=== PATIENT | female | born 1950 | race Caucasian/White ===

== ENCOUNTER 2021-03-16 05:53 | Day surgery (SDC) | payer MEDICARE, OTHER ==
[~2021-03-16] VITALS: Ht 160 cm; Wt 97.7 kg
[~2021-03-16 05:53] MED LIST: LISI5 PO; MELO7.5 PO; METO25 PO; Norvasc5 MG PO
--- NOTE | 2021-03-16 19:39 | NUR ---
SHIFT SUMMARY PT HAS DONE WELL POST OP. EATING, DRINKING, VOIDING. PAIN WELL MANAGED. WORKED W/ THERAPY & UP IN CHAIR FOR REST OF SHIFT. NO DRAINAGE TO AQUACEL.
--- NOTE | 2021-03-17 04:24 | NUR ---
PT A/OX4. BP SOFT IN LOW 100S. PT ASYMPTOMATIC. OTHER VSS ON RA. PAIN MANAGED WELL W/ SCHEDULED AND PRN PAIN MEDS ALONG W/ ICE PACK. PT UP TO TOILET W/ FWW. AMBULATED IN HALLWAY. TOLERATING FOOD/WATER, IV FLUIDS D/C. SLEEPING B/W CARE. USING CALL LIGHT TO MAKE NEEDS KNOWN.
[2021-03-17 04:32] LABS: BASOPHILS ABSOLUTE AUTO 0.04 K/mm3 (0.00-0.23); BASOPHILS PERCENT AUTO 0 % (0-2); EOSINOPHILS ABSOLUTE AUTO 0.21 K/mm3 (0.00-0.68); EOSINOPHILS PERCENT AUTO 2 % (0-6); Hematocrit 34.4 % (33.0-51.0); Hemoglobin 11.3 g/dL (11.5-16.0); IMMATURE GRAN ABSOLUTE AUTO 0.04 K/mm3 (0.00-0.10); IMMATURE GRAN PERCENT AUTO 0 % (0-1); LYMPHOCYTES ABSOLUTE AUTO 1.85 K/mm3 (0.84-5.20); LYMPHOCYTES PERCENT AUTO 16 % (21-46); MONOCYTES ABSOLUTE AUTO 0.98 K/mm3 (0.16-1.47); MONOCYTES PERCENT AUTO 8 % (4-13); Mean Corpuscular HGB 29.4 pg (26.0-34.0); Mean Corpuscular HGB Conc 32.8 g/dL (31.5-36.5); Mean Corpuscular Volume 89 fL (80-100); Mean Platelet Volume 10.8 fL (9.1-12.4); NEUTROPHILS ABSOLUTE AUTO 8.51 K/mm3 (1.96-9.15); NEUTROPHILS PERCENT AUTO 73 % (41-73); Platelet Count 176 K/mm3 (150-400); RDW Coefficient Variation 13.5 % (11.7-14.2); RDW Standard Deviation 44.1 fL (35.1-46.3); Red Blood Cell Count 3.85 M/mm3 (3.80-5.20); White Blood Cell Count 11.63 K/mm3 (4.00-11.30)
[2021-03-17 05:02] LABS: Anion Gap 7 mmol/L (6-16); Blood Urea Nitrogen 25 mg/dL (8-24); Bun/Creatinine Ratio 31.2 (12.0-20.0); CO2, Blood 27 mmol/L (21-32); Calcium, Blood 8.1 mg/dL (8.5-10.1); Chloride, Blood 102 mmol/L (98-108); Glomerular Filtration Rate >60 (60-); Glucose, Blood 194 mg/dL (70-99); Magnesium, Blood 1.8 mg/dL (1.6-2.4); Potassium, Blood 3.5 mmol/L (3.5-5.5); Sodium, Blood 136 mmol/L (136-145)
[2021-03-17] MEDS ORDERED: ACET500 PO (10:36)
[2021-03-17] MEDS ORDERED: ASPI81CH PO (10:36)
[2021-03-17] MEDS ORDERED: OXYC5 PO (10:37)
--- NOTE | 2021-03-17 12:18 | NUR ---
DISCHARGE PT DISCHARGED HOME FROM UNIT AT APROX 1210. PT GIVEN WRITTEN AND VERBAL DISCHARGE INSTRUCTIONS AND PT VERBALIZED UNDERSTANDING OF THESE INSTRUCTIONS. IV REMOVED, PT TOLERATED WELL. WRITTEN RX FOR PAIN MEDICATION GIVEN TO PT.
== END 2021-03-17 12:11 | disposition home or self-care (01) ==
LOC: ORSCMMR 05:53 → ORD 07:30 → SURS 11:04 → ORSCMMR 03-17 12:11 → SURS 03-17 12:11
PROVIDERS: Orthopaedic Surgery
PROC: 0SR90JA Replacement of Right Hip Joint with Synthetic Substitute, Uncemented, Open Approach (ICD-10-PCS; principal; 2021-03-16 07:30)
DX: M16.11 Unilateral primary osteoarthritis, right hip (principal); I10 Essential (primary) hypertension; E66.01 Morbid (severe) obesity due to excess calories; Z68.38 Body mass index [BMI] 38.0-38.9, adult; Z79.899 Other long term (current) drug therapy
CPT/HCPCS: 36415; 72170; 80048; 82947; 83735; 85025; 97110; 97116; 97162; A9270; C1713; C1776; J0171; J0690; J0735; J1885; J2250; J2370; J2405; J2704; J2795; J3010; J7120

== ENCOUNTER 2021-06-15 08:58 | Emergency (ER) | payer MEDICARE, OTHER ==
[~2021-06-15] VITALS: Ht 167.6 cm; Wt 93.0 kg
[~2021-06-15 08:58] MED LIST changes: +ACET500 PO; +ASPI81CH PO; +OXYC5 PO
[2021-06-15 09:37] LABS: BASOPHILS ABSOLUTE AUTO 0.06 K/mm3 (0.00-0.23); BASOPHILS PERCENT AUTO 1 % (0-2); EOSINOPHILS ABSOLUTE AUTO 0.23 K/mm3 (0.00-0.68); EOSINOPHILS PERCENT AUTO 3 % (0-6); Hematocrit 43.9 % (33.0-51.0); Hemoglobin 14.2 g/dL (11.5-16.0); IMMATURE GRAN ABSOLUTE AUTO 0.01 K/mm3 (0.00-0.10); IMMATURE GRAN PERCENT AUTO 0 % (0-1); LYMPHOCYTES ABSOLUTE AUTO 2.17 K/mm3 (0.84-5.20); LYMPHOCYTES PERCENT AUTO 29 % (21-46); MONOCYTES ABSOLUTE AUTO 0.56 K/mm3 (0.16-1.47); MONOCYTES PERCENT AUTO 8 % (4-13); Mean Corpuscular HGB 28.2 pg (26.0-34.0); Mean Corpuscular HGB Conc 32.3 g/dL (31.5-36.5); Mean Corpuscular Volume 87 fL (80-100); Mean Platelet Volume 10.8 fL (9.1-12.4); NEUTROPHILS ABSOLUTE AUTO 4.46 K/mm3 (1.96-9.15); NEUTROPHILS PERCENT AUTO 60 % (41-73); Platelet Count 224 K/mm3 (150-400); RDW Coefficient Variation 14.1 % (11.7-14.2); RDW Standard Deviation 45.4 fL (35.1-46.3); Red Blood Cell Count 5.03 M/mm3 (3.80-5.20); White Blood Cell Count 7.49 K/mm3 (4.00-11.30)
[2021-06-15] MEDS ORDERED: AMLODIPINE BES2.5 MG PO (09:42)
[2021-06-15 10:11] LABS: Alanine Aminotransfer (ALT/SGP 28 U/L (12-78); Albumin, Blood 3.9 g/dL (3.4-5.0); Alk Phos 101 U/L (50-136); Anion Gap 7 mmol/L (6-16); Aspartate Aminotrans (AST/SGOT 20 U/L (12-37); Bilirubin, Total 0.5 mg/dL (0.1-1.0); Blood Urea Nitrogen 24 mg/dL (8-24); Bun/Creatinine Ratio 33.6 (12.0-20.0); CO2, Blood 24 mmol/L (21-32); Calcium, Blood 9.1 mg/dL (8.5-10.1); Chloride, Blood 108 mmol/L (98-108); Creatinine, Blood 0.71 mg/dL (0.40-1.00); Globulin, Blood 4.1 g/dL (2.2-4.0); Glomerular Filtration Rate >60 (60-); Glucose, Blood 155 mg/dL (70-99); Sodium, Blood 139 mmol/L (136-145); Troponin I <0.015 ng/mL (0.000-0.040)
== END 2021-06-15 11:54 | disposition home or self-care (01) ==
LOC: ER 08:58
PROVIDERS: Emergency Medicine Emergency Medical Services
DX: R07.89 Other chest pain (principal); I10 Essential (primary) hypertension; E11.9 Type 2 diabetes mellitus without complications; Z79.899 Other long term (current) drug therapy; Z79.82 Long term (current) use of aspirin; Z86.73 Personal history of transient ischemic attack (TIA), and cerebral infarction without residual deficits
CPT/HCPCS: 36415; 71045; 80053; 83690; 83880; 84484; 85025; 93005; 93010; 96374; 99285-25; J1885

== ENCOUNTER → 2021-08-02 | Outpatient (CLI) | payer MEDICARE ==
[~2021-08-02] MED LIST changes: +AMLODIPINE BES2.5 MG PO
== END ==
LOC: LAB SHORT 15:16 → LAB 15:16
DX: R30.0 Dysuria (principal)
CPT/HCPCS: 87077; 87086; 87186

== ENCOUNTER 2022-03-05 10:57 | Emergency (ER) | payer MEDICARE ==
[~2022-03-05] VITALS: Ht 160 cm; Wt 83.0 kg
[2022-03-05 13:10] LABS: BASOPHILS ABSOLUTE AUTO 0.03 K/mm3 (0.00-0.23); BASOPHILS PERCENT AUTO 0 % (0-2); EOSINOPHILS ABSOLUTE AUTO 0.05 K/mm3 (0.00-0.68); EOSINOPHILS PERCENT AUTO 1 % (0-6); Hematocrit 44.3 % (33.0-51.0); Hemoglobin 14.5 g/dL (11.5-16.0); IMMATURE GRAN ABSOLUTE AUTO 0.01 K/mm3 (0.00-0.10); IMMATURE GRAN PERCENT AUTO 0 % (0-1); LYMPHOCYTES ABSOLUTE AUTO 1.47 K/mm3 (0.84-5.20); LYMPHOCYTES PERCENT AUTO 16 % (21-46); MONOCYTES ABSOLUTE AUTO 0.74 K/mm3 (0.16-1.47); MONOCYTES PERCENT AUTO 8 % (4-13); Mean Corpuscular HGB 27.4 pg (26.0-34.0); Mean Corpuscular HGB Conc 32.7 g/dL (31.5-36.5); Mean Corpuscular Volume 84 fL (80-100); Mean Platelet Volume 10.4 fL (9.1-12.4); NEUTROPHILS ABSOLUTE AUTO 6.96 K/mm3 (1.96-9.15); NEUTROPHILS PERCENT AUTO 75 % (41-73); Platelet Count 280 K/mm3 (150-400); RDW Coefficient Variation 15.9 % (11.7-14.2); RDW Standard Deviation 48.6 fL (35.1-46.3); Red Blood Cell Count 5.29 M/mm3 (3.80-5.20); White Blood Cell Count 9.26 K/mm3 (4.00-11.30)
[2022-03-05 13:26] LABS: Bun/Creatinine Ratio 49.6 (12.0-20.0); Calcium, Blood 8.8 mg/dL (8.5-10.1); Creatinine, Blood 0.79 mg/dL (0.40-1.00); Magnesium, Blood 2.2 mg/dL (1.6-2.4); Potassium, Blood 3.5 mmol/L (3.5-5.5)
== END 2022-03-05 14:30 | disposition home or self-care (01) ==
LOC: ER 10:57
PROVIDERS: Student in an Organized Health Care Education/Training Program
DX: S40.012A Contusion of left shoulder, initial encounter (principal); S70.02XA Contusion of left hip, initial encounter; S00.31XA Abrasion of nose, initial encounter; S00.81XA Abrasion of other part of head, initial encounter; E86.0 Dehydration; I10 Essential (primary) hypertension; E11.9 Type 2 diabetes mellitus without complications; Z86.73 Personal history of transient ischemic attack (TIA), and cerebral infarction without residual deficits; Z79.899 Other long term (current) drug therapy; Z79.82 Long term (current) use of aspirin; Z91.09 Other allergy status, other than to drugs and biological substances; W10.9XXA Fall (on) (from) unspecified stairs and steps, initial encounter; Y92.9 Unspecified place or not applicable
CPT/HCPCS: 36415; 70450; 73030; 73502; 80048; 83735; 85025; 90714; A9270; J7030

== ENCOUNTER 2022-03-17 14:04 | Emergency (ER) | payer MEDICARE ==
[~2022-03-17] VITALS: Ht 160 cm; Wt 83.5 kg
[2022-03-17 16:07] LABS: BASOPHILS ABSOLUTE AUTO 0.02 K/mm3 (0.00-0.23); BASOPHILS PERCENT AUTO 0 % (0-2); EOSINOPHILS ABSOLUTE AUTO 0.04 K/mm3 (0.00-0.68); EOSINOPHILS PERCENT AUTO 0 % (0-6); Hematocrit 42.2 % (33.0-51.0); Hemoglobin 13.9 g/dL (11.5-16.0); IMMATURE GRAN ABSOLUTE AUTO 0.03 K/mm3 (0.00-0.10); IMMATURE GRAN PERCENT AUTO 0 % (0-1); LYMPHOCYTES ABSOLUTE AUTO 2.02 K/mm3 (0.84-5.20); LYMPHOCYTES PERCENT AUTO 18 % (21-46); MONOCYTES ABSOLUTE AUTO 0.88 K/mm3 (0.16-1.47); MONOCYTES PERCENT AUTO 8 % (4-13); Mean Corpuscular HGB Conc 32.9 g/dL (31.5-36.5); Mean Corpuscular Volume 82 fL (80-100); Mean Platelet Volume 10.3 fL (9.1-12.4); NEUTROPHILS ABSOLUTE AUTO 8.09 K/mm3 (1.96-9.15); NEUTROPHILS PERCENT AUTO 73 % (41-73); Platelet Count 307 K/mm3 (150-400); RDW Coefficient Variation 17.3 % (11.7-14.2); Red Blood Cell Count 5.15 M/mm3 (3.80-5.20); White Blood Cell Count 11.08 K/mm3 (4.00-11.30)
[2022-03-17 16:29] LABS: Albumin, Blood 3.4 g/dL (3.4-5.0); Albumin/Globulin Ratio 0.8 (0.8-1.8); Bilirubin, Total 0.7 mg/dL (0.1-1.0); Calcium, Blood 7.9 mg/dL (8.5-10.1); Creatinine, Blood 1.69 mg/dL (0.40-1.00); Globulin, Blood 4.1 g/dL (2.2-4.0); Potassium, Blood 3.8 mmol/L (3.5-5.5); Total Protein, Blood 7.5 g/dL (6.4-8.2)
[2022-03-17 17:52] LABS: Source, Urine Clean Catch
[2022-03-17 17:57] LABS: Appearance, Urine Clear (Clear); Blood, Urine Neg (Neg); Color, Urine Yellow (P-Yellow); Glucose Qualitative, Urine Neg (Neg); Ketones, Urine 1+ (Neg); Leukocyte Esterase, Urine Neg (Neg); Nitrite, Urine Neg (Neg); Protein, Urine 1+ (Neg); Urobilinogen, Urine 1+ (Normal)
[2022-03-17 18:33] LABS: Bilirubin, Urine 1+ (Neg)
[2022-03-17] MEDS ORDERED: AMOCLA875 PO (19:07)
[2022-03-17] MEDS ORDERED: ONDA4 PO (19:07)
== END 2022-03-17 20:22 | disposition home or self-care (01) ==
LOC: ER 14:04
PROVIDERS: Physician Assistant
DX: K52.9 Noninfective gastroenteritis and colitis, unspecified (principal); E86.0 Dehydration; E11.9 Type 2 diabetes mellitus without complications; I10 Essential (primary) hypertension; E78.00 Pure hypercholesterolemia, unspecified; Z79.899 Other long term (current) drug therapy; Z79.82 Long term (current) use of aspirin; Z91.09 Other allergy status, other than to drugs and biological substances; Z87.891 Personal history of nicotine dependence
CPT/HCPCS: 51701; 74177; 80053; 83690; 85025; A9270; J2405; J7030; Q9967

== ENCOUNTER 2022-03-30 16:38 | Inpatient (IN) | payer MEDICARE ==
[~2022-03-30] VITALS: Ht 160 cm; Wt 101.9 kg
[~2022-03-30 16:38] MED LIST changes: +AMOCLA875 PO; +ONDA4 PO
[2022-03-30 17:24] LABS: Hematocrit 41.6 % (33.0-51.0); Hemoglobin 13.6 g/dL (11.5-16.0); Mean Corpuscular HGB 27.4 pg (26.0-34.0); Mean Corpuscular HGB Conc 32.7 g/dL (31.5-36.5); Mean Corpuscular Volume 84 fL (80-100); Platelet Count 237 K/mm3 (150-400); RDW Coefficient Variation 17.2 % (11.7-14.2); RDW Standard Deviation 52.4 fL (35.1-46.3); Red Blood Cell Count 4.96 M/mm3 (3.80-5.20); White Blood Cell Count 16.21 K/mm3 (4.00-11.30)
[2022-03-30 17:47] LABS: Magnesium, Blood 2.1 mg/dL (1.6-2.4)
[2022-03-30 17:50] LABS: Albumin, Blood 2.9 g/dL (3.4-5.0); Albumin/Globulin Ratio 0.8 (0.8-1.8); Bilirubin, Total 0.5 mg/dL (0.1-1.0); Bun/Creatinine Ratio 70.2 (12.0-20.0); Calcium, Blood 7.6 mg/dL (8.5-10.1); Creatinine, Blood 0.77 mg/dL (0.40-1.00); Globulin, Blood 3.5 g/dL (2.2-4.0); Potassium, Blood 2.7 mmol/L (3.5-5.5); Thyroid Stimulating Hormone 3.17 uIU/mL (0.360-4.800); Total Protein, Blood 6.4 g/dL (6.4-8.2)
[2022-03-30 17:58] LABS: BAND PERCENT MAN 12 % (0-8); BASOPHILS PERCENT MAN 0 % (0-2); EOSINOPHILS PERCENT MAN 0 % (0-6); LYMPHOCYTES PERCENT MAN 13 % (21-46); MONOCYTES ABSOLUTE MAN 0.16 K/mm3 (0.16-1.47); MONOCYTES PERCENT MAN 1 % (4-13); NEUTROPHILS ABSOLUTE MAN 13.94 K/mm3 (1.96-9.15); SEG NEUTROPHILS PERCENT MAN 74 % (41-73); TOTAL CELLS COUNTED 100
[2022-03-30 20:32] LABS: Adenovirus F 40/41 Not Detected (NOT DETECT); Astrovirus Not Detected (NOT DETECT); Campylobacter Sp Not Detected (NOT DETECT); Cryptosporidium Not Detected (NOT DETECT); Cyclospora Cayetanensis Not Detected (NOT DETECT); E. Coli O157 Not Detected (NOT DETECT); Entamoeba Histolytica Not Detected (NOT DETECT); Enteroaggregative E. coli-EAEC Not Detected (NOT DETECT); Enteropathogenic E. coli-EPEC Not Detected (NOT DETECT); Enterotoxigenic E. coli-ETEC Not Detected (NOT DETECT); Giardia Lamblia Not Detected (NOT DETECT); Norovirus GI/GII Not Detected (NOT DETECT); Plesiomonas Shigelloides Not Detected (NOT DETECT); Rotavirus A Not Detected (NOT DETECT); Salmonella Sp Not Detected (NOT DETECT); Sapovirus Not Detected (NOT DETECT); Shiga Toxin-prod E. coli-STEC Not Detected (NOT DETECT); Shigella/Enteroin E. coli-EIEC Not Detected (NOT DETECT); Vibrio Cholerae Not Detected (NOT DETECT); Vibrio Sp Not Detected (NOT DETECT); Yersinia Enterocolitica Not Detected (NOT DETECT)
--- NOTE | 2022-03-30 23:48 | NUR ---
ADMIT: PATIENT WAS RECIEVED FROM ER VIA STRETCHER. ABLE TO WALK FROM STRETCHER TO THE BED. PATIENT IS ORIENTED TO THE ROOM AND CALL [place]. REPORTS NAUSEA AND IS DRY HEAVING. IV COMPAZINE IS GIVEN.
[2022-03-31 05:00] LABS: Hematocrit 37.9 % (33.0-51.0); Hemoglobin 12.2 g/dL (11.5-16.0); Mean Corpuscular HGB 27.8 pg (26.0-34.0); Mean Corpuscular HGB Conc 32.2 g/dL (31.5-36.5); Mean Corpuscular Volume 86 fL (80-100); Mean Platelet Volume 10.6 fL (9.1-12.4); Platelet Count 174 K/mm3 (150-400); RDW Coefficient Variation 17.4 % (11.7-14.2); RDW Standard Deviation 55.7 fL (35.1-46.3); Red Blood Cell Count 4.39 M/mm3 (3.80-5.20); White Blood Cell Count 3.09 K/mm3 (4.00-11.30)
[2022-03-31 05:40] LABS: BAND PERCENT MAN 26 % (0-8); BASOPHILS PERCENT MAN 0 % (0-2); EOSINOPHILS PERCENT MAN 0 % (0-6); LYMPHOCYTES ABSOLUTE MAN 0.92 K/mm3 (0.84-5.20); LYMPHOCYTES PERCENT MAN 30 % (21-46); METAMYELOCYTE ABSOLUTE MAN 0.12 K/mm3 (0.00-0.00); METAMYELOCYTE PERCENT MAN 4 % (0-0); MONOCYTES ABSOLUTE MAN 0.03 K/mm3 (0.16-1.47); MONOCYTES PERCENT MAN 1 % (4-13); MYELOCYTE ABSOLUTE MAN 0.09 K/mm3 (0.00-0.00); MYELOCYTE PERCENT MAN 3 % (0-0); NEUTROPHILS ABSOLUTE MAN 1.91 K/mm3 (1.96-9.15); SEG NEUTROPHILS PERCENT MAN 36 % (41-73); TOTAL CELLS COUNTED 100
[2022-03-31 06:29] LABS: Albumin, Blood 2.3 g/dL (3.4-5.0); Albumin/Globulin Ratio 0.8 (0.8-1.8); Bilirubin, Total 0.4 mg/dL (0.1-1.0); Bun/Creatinine Ratio 68.9 (12.0-20.0); Calcium, Blood 7.1 mg/dL (8.5-10.1); Creatinine, Blood 0.67 mg/dL (0.40-1.00); Globulin, Blood 2.8 g/dL (2.2-4.0); Total Protein, Blood 5.1 g/dL (6.4-8.2)
[2022-03-31 06:31] LABS: Potassium, Blood 2.4 mmol/L (3.5-5.5)
--- NOTE | 2022-03-31 06:45 | NUR ---
SHIFT SUMMARY: PATIENT HAD GOOD EFFECT FROM COMPAZINE. ONLY 3 EPISODE OF DIARRHEA THIS SHIFT. VSS, NO REPORTS OF PAIN. POTASIUM WAS CRITICAL THIS AM AT 2.4. DR COVINGTON WAS NOTIFED AND ORDER FOR 40 MEQ POTASIUM IV WAS OBTAINED. BED ALARM IS ON.
--- NOTE | 2022-03-31 17:19 | NUR ---
SHIFT SUMMARY PT A&O, FOLLOWS COMMANDS. PT INDEPENDENT, USING BEDSIDE COMMODE. PT WITH FREQUENT BM'S STILL. CHOLESTYRAMINE TID STARTED. PT UNABLE TO TAKE EVENING DOSE D/T "STOMACH FEELING TOO FULL". PT RECEIVED NAUSEA MEDICATION X 1. DECREASED INTAKE, WILL CONTINUE TO MONITOR.
[2022-04-01 05:20] LABS: Hematocrit 37.6 % (33.0-51.0); Hemoglobin 12.5 g/dL (11.5-16.0); Mean Corpuscular HGB 27.7 pg (26.0-34.0); Mean Corpuscular HGB Conc 33.2 g/dL (31.5-36.5); Mean Corpuscular Volume 83 fL (80-100); Mean Platelet Volume 11.6 fL (9.1-12.4); Platelet Count 167 K/mm3 (150-400); RDW Coefficient Variation 17.2 % (11.7-14.2); RDW Standard Deviation 52.4 fL (35.1-46.3); Red Blood Cell Count 4.52 M/mm3 (3.80-5.20); White Blood Cell Count 2.02 K/mm3 (4.00-11.30)
--- NOTE | 2022-04-01 05:27 | NUR ---
SHIFT SUMMARY: PATIENT REPORTED ACID REFLUX AND CONTINUES O HAVE LIQIUD STOOLS. RECTAL ARE IS TENDER. DR KEENAN WAS NOTIFED AND ORDERS FOR PROTONIX QD, TUMS PRN AND IMMODIUM PRN WERE OBTAINED. GOOD EFFECT FROM PROTONIX AND TUMS. IMMODIUM HAS POOR EFFECT WITH TWO DOSES GIVEN. POOR PO INTAKE AND BLOATING SLIGHT NAUSEA ARE PERSISTANT.
[2022-04-01 05:50] LABS: BAND PERCENT MAN 15 % (0-8); BASOPHILS PERCENT MAN 0 % (0-2); EOSINOPHILS PERCENT MAN 0 % (0-6); LYMPHOCYTES ABSOLUTE MAN 0.38 K/mm3 (0.84-5.20); LYMPHOCYTES PERCENT MAN 19 % (21-46); METAMYELOCYTE ABSOLUTE MAN 0.04 K/mm3 (0.00-0.00); METAMYELOCYTE PERCENT MAN 2 % (0-0); MONOCYTES PERCENT MAN 5 % (4-13); MYELOCYTE ABSOLUTE MAN 0.06 K/mm3 (0.00-0.00); MYELOCYTE PERCENT MAN 3 % (0-0); NEUTROPHILS ABSOLUTE MAN 1.43 K/mm3 (1.96-9.15); SEG NEUTROPHILS PERCENT MAN 56 % (41-73); TOTAL CELLS COUNTED 100
[2022-04-01 05:58] LABS: Albumin, Blood 2.4 g/dL (3.4-5.0); Albumin/Globulin Ratio 0.9 (0.8-1.8); Bilirubin, Total 0.6 mg/dL (0.1-1.0); Bun/Creatinine Ratio 59.8 (12.0-20.0); Calcium, Blood 7.5 mg/dL (8.5-10.1); Creatinine, Blood 0.62 mg/dL (0.40-1.00); Globulin, Blood 2.8 g/dL (2.2-4.0); Total Protein, Blood 5.2 g/dL (6.4-8.2)
[2022-04-01 06:00] LABS: Potassium, Blood 2.4 mmol/L (3.5-5.5)
--- NOTE | 2022-04-01 17:24 | NUR ---
SHIFT SUMMARY PT A&O, FOLLOWS COMMANDS. PT STILL WITH FREQUENT DIARRHEA DESPITE SCHEDULED AND PRN MEDICATION ADMINISTRATION. MD AWARE, MEDICATIONS CHANGED. PT STILL NEEDING ELECTROLYTE REPLACEMENT. FLUIDS CHANGED TO NS KCL, CURRENTLY INFUSING. CONTINUE SCHEDULED IV ABX. NO C/O NAUSEA OR HEARTBURN TODAY. WILL CONTINUE TO MONITOR.
--- NOTE | 2022-04-02 01:43 | NUR ---
REFUSAL OF TREATMENT: PATIENT IS UP TO THE BSC, ALLOWS VS TO BE TAKEN. VIEWS SCORE IS 4. 206/113, 114, 21, 97.8 AND REPORTS A HEADACHE. PATIENT AGAIN REFUSES TELI AND PRN HYDRALAZINE AND TYLENOL. DR COVINGTON AND METAL SPRAYER PRODUCTION ARE MADE AWARE. NO NEW ORDERS ARE GIVEN. INSTRUCTS CHECK WRITING MACHINE OPERATOR TO DOCUMENT REFUSAL.
--- NOTE | 2022-04-02 02:13 | NUR ---
CARDIAC: PATIENT REPORTS FEELING LIKE HER HEART IS RACING AND AGREES TO IV HYDRALAZINE AND MED IS GIVEN. PATIENT REFUSES RECHECK OF BP AND PLACEMENT OF TELEMETRY. GOOD URINE OUTPUT THIS SHIFT. PATIENT REMAIN A&OX3. BED ALARM IS ON FOR SAFETY.
--- NOTE | 2022-04-02 06:34 | NUR ---
SHIFT SUMMARY: DIAHRREA HAS SLOWED WITH THE START OF LOMOTIL. INC. HAS ALSO DECREASED. PATIENT IS WALKING INTO THE BATHROOM WITH SBA X1. NO NAUSEA AND ACID REFLUX HAS SUBSIDED. IVF WITH POTASSIUM ARE INFUSING PER MAR.
[2022-04-02 07:22] LABS: Bun/Creatinine Ratio 62.2 (12.0-20.0); Calcium, Blood 7.3 mg/dL (8.5-10.1); Creatinine, Blood 0.58 mg/dL (0.40-1.00); Magnesium, Blood 1.7 mg/dL (1.6-2.4); Potassium, Blood 3.2 mmol/L (3.5-5.5)
--- NOTE | 2022-04-02 18:09 | NUR ---
SHIFT SUMMARY PT ALERT AND ORIENTED, FOLLOWS COMMANDS. PT WITH DECREASED FREQUENCY IN DIARRHEA, BUT STILL PRESENT. IV ABX DC'D, FLUIDS STILL INFUSING. PT TOLERATING DIET, STILL DECREASED INTAKE. PT OOB TO BATHROOM AND UP TO CHAIR DURING MEALS. ELECTROLYTE REPLACEMENT CONTINUED.
[2022-04-03 05:02] LABS: Hematocrit 35.4 % (33.0-51.0); Hemoglobin 11.8 g/dL (11.5-16.0); Mean Corpuscular HGB 27.8 pg (26.0-34.0); Mean Corpuscular HGB Conc 33.3 g/dL (31.5-36.5); Mean Corpuscular Volume 83 fL (80-100); Mean Platelet Volume 11.9 fL (9.1-12.4); Platelet Count 101 K/mm3 (150-400); RDW Coefficient Variation 17.9 % (11.7-14.2); RDW Standard Deviation 53.9 fL (35.1-46.3); Red Blood Cell Count 4.25 M/mm3 (3.80-5.20); White Blood Cell Count 2.02 K/mm3 (4.00-11.30)
[2022-04-03 05:21] LABS: Bun/Creatinine Ratio 60.3 (12.0-20.0); Calcium, Blood 7.3 mg/dL (8.5-10.1); Creatinine, Blood 0.53 mg/dL (0.40-1.00); Potassium, Blood 3.4 mmol/L (3.5-5.5)
--- NOTE | 2022-04-03 05:35 | NUR ---
SHIFT SUMMARY: PATIENT CONTINUES TO HAVE LIQUID STOOLS AND IS INC. AT TIMES. RECTAL AREA IS EXCORTIATED. ZINCOXIDE CREAM IS APPLIED. ATE 100% OF SNACK. NO REPORTS OF NAUSEA. IVF INFUSING PER MAR AND VSS.
[2022-04-03 06:59] LABS: BAND PERCENT MAN 14 % (0-8); BASOPHILS PERCENT MAN 0 % (0-2); EOSINOPHILS ABSOLUTE MAN 0.04 K/mm3 (0.00-0.68); EOSINOPHILS PERCENT MAN 2 % (0-6); LYMPHOCYTES ABSOLUTE MAN 0.66 K/mm3 (0.84-5.20); LYMPHOCYTES PERCENT MAN 33 % (21-46); METAMYELOCYTE ABSOLUTE MAN 0.02 K/mm3 (0.00-0.00); METAMYELOCYTE PERCENT MAN 1 % (0-0); MONOCYTES PERCENT MAN 30 % (4-13); NEUTROPHILS ABSOLUTE MAN 0.68 K/mm3 (1.96-9.15); SEG NEUTROPHILS PERCENT MAN 20 % (41-73); TOTAL CELLS COUNTED 100
--- NOTE | 2022-04-03 21:56 | NUR ---
PT VOMITED SHORTLY AFTER ADMINISTRATION OF HS MEDICATIONS
--- NOTE | 2022-04-04 05:11 | NUR ---
PHOTOGRAPHIC EQUIPMENT TECHNICIAN SUMMARY ADMITTED FOR COLITIS. THE PATIENT IS FULL CODE. SHE HAD ONE EPISODE OF VOMITING AFTER HS MEDICATIONS, WHICH SHE BELIEVES IS DUE TO EATING TOO MUCH AT DINNER. THE PATIENT HAS HAD MULTIPLE EPISODES OF DIARRHEA THROUGHOUT THE NIGHT - SHE HAS INCONTINENCE WHEN SHE STANDS UP. SHE IS ALERT AND ORIENTED X4 AND COOPERATIVE. THE PATIENT AMBULATES USING FURNITURE. SHE DENIES ANY PAIN.
[2022-04-04 05:15] LABS: Hematocrit 37.1 % (33.0-51.0); Hemoglobin 12.2 g/dL (11.5-16.0); Mean Corpuscular HGB 27.3 pg (26.0-34.0); Mean Corpuscular HGB Conc 32.9 g/dL (31.5-36.5); Mean Corpuscular Volume 83 fL (80-100); Mean Platelet Volume 12.2 fL (9.1-12.4); Platelet Count 108 K/mm3 (150-400); RDW Coefficient Variation 18.1 % (11.7-14.2); RDW Standard Deviation 54.6 fL (35.1-46.3); Red Blood Cell Count 4.47 M/mm3 (3.80-5.20); White Blood Cell Count 5.41 K/mm3 (4.00-11.30)
[2022-04-04 05:36] LABS: Bun/Creatinine Ratio 84.6 (12.0-20.0); Calcium, Blood 7.4 mg/dL (8.5-10.1); Creatinine, Blood 0.47 mg/dL (0.40-1.00); Potassium, Blood 3.9 mmol/L (3.5-5.5)
[2022-04-04 06:33] LABS: BAND PERCENT MAN 18 % (0-8); BASOPHILS PERCENT MAN 0 % (0-2); EOSINOPHILS PERCENT MAN 0 % (0-6); LYMPHOCYTES ABSOLUTE MAN 1.29 K/mm3 (0.84-5.20); LYMPHOCYTES PERCENT MAN 24 % (21-46); METAMYELOCYTE ABSOLUTE MAN 0.16 K/mm3 (0.00-0.00); METAMYELOCYTE PERCENT MAN 3 % (0-0); MONOCYTES ABSOLUTE MAN 1.78 K/mm3 (0.16-1.47); MONOCYTES PERCENT MAN 33 % (4-13); NEUTROPHILS ABSOLUTE MAN 2.16 K/mm3 (1.96-9.15); SEG NEUTROPHILS PERCENT MAN 22 % (41-73); TOTAL CELLS COUNTED 100
--- NOTE | 2022-04-04 13:36 | NUR ---
PT RECENTLY TO [facility] BY [facility]UCIA. History, Chart, Medications and Allergies reviewed before start of procedure.Lungs clear T/O to Auscultation. Patient confirms NPO status and agrees with scheduled surgery. Pre-Op teaching done. Pt verbalizes understanding.
--- NOTE | 2022-04-04 13:47 | NUR ---
04/04/22 1347 Vesna Brar HISTORY,CHART, MEDICATIONS AND ALLERGIES REVIEWED BEFORE START OF PROCEDURE. PATIENT CONFIRMS NPO STATUS AND AGREES WITH SCHEDULED PROCEDURE. 3-LEAD EKG REVIEWED WITH PHYSICIAN PRIOR TO START OF PROCEDURE. MONITOR INTACT WITH CONTINUOUS PULSE OXIMETRY, 3-LEAD EKG, CAPNOGRAPHY AND INTERMITTENT BP. SUPPLEMENTAL O2 TO BE TITRATED THROUGHOUT PROCEDURE TO MAINTAIN O2 SATURATION ABOVE 90%. PATIENT DETERMINED TO BE ASA APPROPRIATE FOR MODERATE SEDATION PRIOR TO START OF PROCEDURE BY DR. VALENCIA.
--- NOTE | 2022-04-05 01:21 | NUR ---
04/04/22 4229 PT LYING IN BEDSIDE RECLINER. HAS HAD DIARRHEA. DENIES ANY OTHER DISCOMFORT AT THIS TIME. NO OTHER APPARENT SIGNS OF DISTRESS. PT WOULD LIKE TO WAIT UNTIL LATER TO HAVE NG TUBE PLACED. CALL LIGHT IS IN REACH.
--- NOTE | 2022-04-05 01:30 | NUR ---
0000 PT LYING IN BEDSIDE RECLINER, EYES CLOSED, APPEARS TO BE RESTING, BREATHING IS EVEN, UNLABORED. NO APPARENT SIGNS OF DISTRESS. CALL LIGHT IS IN REACH.
--- NOTE | 2022-04-05 02:48 | NUR ---
ATTEMPTED TO PLACE NG TUBE X 2, ONCE DOWN EACH NARE, IT COILED INTO HER MOUTH BOTH TIMES, HER HEAD WAS TUCKED AND SHE FOLLOWED INSTRUCTIONS WELL WITH DRIKING WATER DURING INSERTION. PT IS WILLING LATER ON TO HAVE ANOTHER RN TRY TO PLACE THE NG TUBE. PLACED A NEW IV IN HER LFA, DC'D THE IV IN HER RAC IT WAS LEAKING. PT TOLERATED ALL PROCEDURES WELL. NO APPARENT SIGNS OF DISTRESS. CALL LIGHT IS IN REACH. PT IS NOW LYING IN HER BED.
[2022-04-05 07:10] LABS: Hematocrit 35.2 % (33.0-51.0); Hemoglobin 11.6 g/dL (11.5-16.0); Mean Corpuscular HGB 27.5 pg (26.0-34.0); Mean Corpuscular Volume 83 fL (80-100); Mean Platelet Volume 12.1 fL (9.1-12.4); Platelet Count 118 K/mm3 (150-400); RDW Coefficient Variation 18.9 % (11.7-14.2); RDW Standard Deviation 57.6 fL (35.1-46.3); Red Blood Cell Count 4.22 M/mm3 (3.80-5.20); White Blood Cell Count 15.71 K/mm3 (4.00-11.30)
[2022-04-05 07:24] LABS: Albumin, Blood 1.9 g/dL (3.4-5.0); Anion Gap 10 mmol/L (6-16); Blood Urea Nitrogen 45 mg/dL (8-24); Bun/Creatinine Ratio 71.2 (12.0-20.0); CO2, Blood 17 mmol/L (21-32); Calcium, Blood 7.5 mg/dL (8.5-10.1); Chloride, Blood 116 mmol/L (98-108); Creatinine, Blood 0.63 mg/dL (0.40-1.00); Glomerular Filtration Rate 95 (60-); Glucose, Blood 125 mg/dL (70-99); Phosphorus, Blood 1.9 mg/dL (2.5-4.9); Potassium, Blood 4.3 mmol/L (3.5-5.5); Sodium, Blood 143 mmol/L (136-145)
--- NOTE | 2022-04-05 07:25 | NUR ---
0400 PT SITTING UP IN CHAIR, NO APPARENT SIGNS OF DISTRESS. DENIES NEED FOR ANYTHING AT THIS TIME. CALL LIGHT IS IN REACH.
--- NOTE | 2022-04-05 07:26 | NUR ---
AAO X 4, ON RA. PT HAD MULT EPISODES OF DIARRHEA. RAC IV WAS LEAKING, DC'D, PLACED NEW IF IN LFA. EDEMA IN LE'S. ATTEMPTED NGTUBE X 2, PT DECLINED FURTHER ATTEMPTS FOR THE NIGHT. REDNESS ON HER BOTTOM.
[2022-04-05 07:32] LABS: BAND PERCENT MAN 17 % (0-8); BASOPHILS PERCENT MAN 0 % (0-2); EOSINOPHILS PERCENT MAN 0 % (0-6); LYMPHOCYTES ABSOLUTE MAN 1.41 K/mm3 (0.84-5.20); LYMPHOCYTES PERCENT MAN 9 % (21-46); METAMYELOCYTE ABSOLUTE MAN 0.15 K/mm3 (0.00-0.00); METAMYELOCYTE PERCENT MAN 1 % (0-0); MONOCYTES ABSOLUTE MAN 1.41 K/mm3 (0.16-1.47); MONOCYTES PERCENT MAN 9 % (4-13); NEUTROPHILS ABSOLUTE MAN 12.72 K/mm3 (1.96-9.15); SEG NEUTROPHILS PERCENT MAN 64 % (41-73); TOTAL CELLS COUNTED 100
--- NOTE | 2022-04-05 07:33 | NUR ---
PT SITTING IN BEDSIDE CHAIR, AWAKE, PT IS CONCERNED R/T HER EDEMA IN HER LE'S, DAY RN IS AWARE AND WILL ADDRESS IT WITH THE DAY HOSPITALIST. NO OTHER APPARENT SIGNS OF DISTRESS. CALL LIGHT IS IN REACH. NO OTHER CHANGES THIS SHIFT.
[2022-04-06 05:35] LABS: Hematocrit 34.8 % (33.0-51.0); Hemoglobin 11.6 g/dL (11.5-16.0); Mean Corpuscular HGB 27.6 pg (26.0-34.0); Mean Corpuscular HGB Conc 33.3 g/dL (31.5-36.5); Mean Corpuscular Volume 83 fL (80-100); Platelet Count 132 K/mm3 (150-400)
[2022-04-06 06:00] LABS: Albumin, Blood 1.9 g/dL (3.4-5.0); Anion Gap 8 mmol/L (6-16); Blood Urea Nitrogen 44 mg/dL (8-24); Bun/Creatinine Ratio 72.6 (12.0-20.0); CO2, Blood 20 mmol/L (21-32); Calcium, Blood 7.5 mg/dL (8.5-10.1); Chloride, Blood 113 mmol/L (98-108); Creatinine, Blood 0.61 mg/dL (0.40-1.00); Glomerular Filtration Rate 96 (60-); Glucose, Blood 140 mg/dL (70-99); Magnesium, Blood 2.1 mg/dL (1.6-2.4); Phosphorus, Blood 1.8 mg/dL (2.5-4.9); Potassium, Blood 4.1 mmol/L (3.5-5.5); Sodium, Blood 141 mmol/L (136-145); Triglycerides 247 mg/dL (30-160)
[2022-04-06 06:08] LABS: BAND PERCENT MAN 17 % (0-8); BASOPHILS PERCENT MAN 0 % (0-2); EOSINOPHILS PERCENT MAN 0 % (0-6); LYMPHOCYTES PERCENT MAN 5 % (21-46); METAMYELOCYTE PERCENT MAN 2 % (0-0); MONOCYTES PERCENT MAN 2 % (4-13); NEUTROPHILS ABSOLUTE MAN 17.88 K/mm3 (1.96-9.15); SEG NEUTROPHILS PERCENT MAN 72 % (41-73); TOTAL CELLS COUNTED 100
[2022-04-06 06:09] LABS: MYELOCYTE PERCENT MAN 2 % (0-0); PROMYELOCYTE PERCENT MAN 0 % (0-0)
--- NOTE | 2022-04-06 06:11 | NUR ---
SHIFT SUMMARY NO ACUTE CHANGES TO REPORT OVERNIGHT. PT CONTINUES TO HAVE LOOSE INCONTIENT STOOLS OVERNIGHT. PT ATTEMPTS TO MAKE IT TO THE BSC BUT BEFORE SHE CAN GET UP SHE HAS ALREADY GONE IN HER ATTENDS. PT IS NOT COMPLANING OF ANY ABD OR NAUSEA. PT REPORTS BEING WEAK FROM ALL OF THE DIARRHEA BUT IS STILL ABLE TO AMBULATE WELL WITH 1 PA. PPN INFUSING. VITALS STABLE. BED IN LOWEST POSITION, CALL LIGHT WITHIN REACH.
--- NOTE | 2022-04-06 17:25 | NUR ---
AOX4, CAN MAKE NEEDS KNOWN, COOPERATIVE WITH MEDICATIONS AND CARE. SBA TO BSC. PT HAS MULTIPLE LOOSE STOOLS THROUGHOUT THE DAY, DIFFICULT TO HOLD AND HAS ACCIDENTS WHILE TRANSFERING TO BSC. PT STATES WEAKNESS AND FEELING VERY TIRED. PT NPO; PPN CURRENTLY INFUSING. POWERGLIDE INSERTED THIS AFTERNOON IN UNA D/T PIVS INFILTRATING. PATIENTS BOTTOM IS REDDENED D/T LOOSE BMS, BARRIER CREAM BEING USED AT AREA. PT CURRENTLY DENIES PAIN. NO ACUTE CHANGES. CALL-LIGHT WITHIN REACH. PT USING RECLINER NOT BED D/T BEING MORE COMFORTABLE IN RECLINED SITTING POSITION. CURRENTLY NO N/V.
--- NOTE | 2022-04-06 23:10 | NUR ---
2300 PT HAS ORAL THRUSH AND DR HURD ORDERED S/S NYSTAIN.
[2022-04-07 05:00] LABS: Hematocrit 35.9 % (33.0-51.0); Hemoglobin 11.8 g/dL (11.5-16.0); Mean Corpuscular HGB 27.2 pg (26.0-34.0); Mean Corpuscular HGB Conc 32.9 g/dL (31.5-36.5); Mean Corpuscular Volume 83 fL (80-100); Mean Platelet Volume 11.6 fL (9.1-12.4); Platelet Count 145 K/mm3 (150-400); RDW Standard Deviation 56.2 fL (35.1-46.3); Red Blood Cell Count 4.34 M/mm3 (3.80-5.20); White Blood Cell Count 18.32 K/mm3 (4.00-11.30)
[2022-04-07 05:20] LABS: BAND PERCENT MAN 23 % (0-8); BASOPHILS PERCENT MAN 0 % (0-2); EOSINOPHILS PERCENT MAN 0 % (0-6); LYMPHOCYTES ABSOLUTE MAN 0.73 K/mm3 (0.84-5.20); LYMPHOCYTES PERCENT MAN 4 % (21-46); MONOCYTES ABSOLUTE MAN 0.54 K/mm3 (0.16-1.47); MONOCYTES PERCENT MAN 3 % (4-13); NEUTROPHILS ABSOLUTE MAN 17.03 K/mm3 (1.96-9.15); SEG NEUTROPHILS PERCENT MAN 70 % (41-73); TOTAL CELLS COUNTED 100
[2022-04-07 05:22] LABS: Bun/Creatinine Ratio 77.1 (12.0-20.0); Calcium, Blood 7.6 mg/dL (8.5-10.1); Creatinine, Blood 0.55 mg/dL (0.40-1.00); Phosphorus, Blood 2.1 mg/dL (2.5-4.9); Potassium, Blood 4.2 mmol/L (3.5-5.5)
--- NOTE | 2022-04-07 16:48 | NUR ---
18 BOTSWANAN NG PLACED TO THE LEFT NARE, AFTER MULTIPLE ATTEMPTS, PT JUNIOR POORLY, IMMEDIATE RETURN OF GASTRIC CONTENTS, PT PLACED ON LOW INT SUCTION
--- NOTE | 2022-04-07 17:14 | NUR ---
Patient c/o LUQ pain, increased abdominal distension reported. Bowel tones hyperactive. NOC shift reported emesis of fecal matter. MD Ayoub aware, ordered NG tube placement & continous suction. Several attempts for NG placement, finally NG placed. PPN running continously. CBG Q6H, SSI ordered Q6H. Watery stool observed, episodes of incontinence this shift, no formed BM/diarrhea noted. Vitals stable.
--- NOTE | 2022-04-08 05:00 | NUR ---
SHIFT SUMMARY: PT IS A/OX4. SHE HAS A NGT TO LIWS. PPN IS AT 95 ML/HR. SHE IS HAVING FREQUENT, LIQUID BMs. D/T GENERAL WEAKNESS THE PT IS USING THE BEDPAN. HER SKIN AROUND THE ANUS IS EXTREMELY ESCORIATED AND PAINFUL. BLE HAS 1+ PITTING EDEMA. HER DISTENTION SEEMS TO BE SLIGHTLY LESS THAN AT THE BEGINNING OF THE SHIFT.
[2022-04-08 05:31] LABS: Hematocrit 30.4 % (33.0-51.0); Hemoglobin 10.2 g/dL (11.5-16.0); Mean Corpuscular HGB 27.7 pg (26.0-34.0); Mean Corpuscular HGB Conc 33.6 g/dL (31.5-36.5); Mean Corpuscular Volume 83 fL (80-100); Mean Platelet Volume 11.3 fL (9.1-12.4); Platelet Count 119 K/mm3 (150-400); RDW Coefficient Variation 19.1 % (11.7-14.2); RDW Standard Deviation 56.4 fL (35.1-46.3); Red Blood Cell Count 3.68 M/mm3 (3.80-5.20); White Blood Cell Count 16.33 K/mm3 (4.00-11.30)
[2022-04-08 05:50] LABS: Albumin, Blood 1.5 g/dL (3.4-5.0); Anion Gap 8 mmol/L (6-16); BAND PERCENT MAN 21 % (0-8); BASOPHILS PERCENT MAN 0 % (0-2); Blood Urea Nitrogen 33 mg/dL (8-24); Bun/Creatinine Ratio 68.8 (12.0-20.0); CO2, Blood 22 mmol/L (21-32); Calcium, Blood 7.4 mg/dL (8.5-10.1); Chloride, Blood 111 mmol/L (98-108); Creatinine, Blood 0.48 mg/dL (0.40-1.00); EOSINOPHILS PERCENT MAN 0 % (0-6); Glomerular Filtration Rate 101 (60-); Glucose, Blood 184 mg/dL (70-99); LYMPHOCYTES ABSOLUTE MAN 1.14 K/mm3 (0.84-5.20); LYMPHOCYTES PERCENT MAN 7 % (21-46); METAMYELOCYTE ABSOLUTE MAN 0.16 K/mm3 (0.00-0.00); METAMYELOCYTE PERCENT MAN 1 % (0-0); MONOCYTES ABSOLUTE MAN 0.48 K/mm3 (0.16-1.47); MONOCYTES PERCENT MAN 3 % (4-13); MYELOCYTE ABSOLUTE MAN 0.32 K/mm3 (0.00-0.00); MYELOCYTE PERCENT MAN 2 % (0-0); Magnesium, Blood 1.9 mg/dL (1.6-2.4); Phosphorus, Blood 2.5 mg/dL (2.5-4.9); Potassium, Blood 3.7 mmol/L (3.5-5.5); SEG NEUTROPHILS PERCENT MAN 66 % (41-73); Sodium, Blood 141 mmol/L (136-145); TOTAL CELLS COUNTED 100
--- NOTE | 2022-04-08 11:18 | NUR ---
DR. ALEGRIA NOTIFIED BY TELEPHONE PT HAD LOVENOX INJECTION THIS AM. NO NEW ORDERS AND PT TO CONTINUE WITH SURGERY PER DR. ALEGRIA.
--- NOTE | 2022-04-08 13:35 | NUR ---
Patient reports decreased distension, denies abdominal pain but c/o pain in buttocks. Inner glueteal fold, red/exoriated d/t diarrhea. Barrier cream applied. Dr. Ayoub assessed patient, plan is to take patient to surgery this afternoon. Inserted new 20g IVP in right/AC, NS locked. Disconnected from PPN infusion, clamped NG tube. Surgical nurses arrived at 1245, and took patient to OR.
--- NOTE | 2022-04-08 17:34 | NUR ---
04/08/22 4519 Steven Connelly PT TO PACU WITH COLOSTOMY IN PLACE. SUREPREP PROTECTIVE WIPES APPLIED BY SURGEON PRIOR TO PLACEMENT OF APPLIANCE RING. APPROXIMATELY 650CC STOOL SUCTIONED OUT OF LOOP.
--- NOTE | 2022-04-08 18:14 | NUR ---
Handoff reported given UTILITY SYSTEM REPAIRER, patient had bowel surgery & colostomy this afternoon, now she will be transferred PCU, instead of surgical floor.
[2022-04-09 04:57] LABS: Hematocrit 29.9 % (33.0-51.0); Hemoglobin 9.7 g/dL (11.5-16.0); Mean Corpuscular HGB 27.4 pg (26.0-34.0); Mean Corpuscular HGB Conc 32.4 g/dL (31.5-36.5); Mean Corpuscular Volume 85 fL (80-100); Mean Platelet Volume 12.1 fL (9.1-12.4); Platelet Count 132 K/mm3 (150-400); RDW Coefficient Variation 19.4 % (11.7-14.2); RDW Standard Deviation 57.4 fL (35.1-46.3); Red Blood Cell Count 3.54 M/mm3 (3.80-5.20); White Blood Cell Count 16.53 K/mm3 (4.00-11.30)
[2022-04-09 05:43] LABS: Albumin, Blood 1.1 g/dL (3.4-5.0); Anion Gap 5 mmol/L (6-16); Blood Urea Nitrogen 30 mg/dL (8-24); Bun/Creatinine Ratio 70.1 (12.0-20.0); CO2, Blood 23 mmol/L (21-32); Calcium, Blood 7.5 mg/dL (8.5-10.1); Chloride, Blood 111 mmol/L (98-108); Creatinine, Blood 0.43 mg/dL (0.40-1.00); Glomerular Filtration Rate 104 (60-); Glucose, Blood 181 mg/dL (70-99); Phosphorus, Blood 2.8 mg/dL (2.5-4.9); Potassium, Blood 4.1 mmol/L (3.5-5.5); Sodium, Blood 139 mmol/L (136-145)
[2022-04-09 05:45] LABS: BAND PERCENT MAN 30 % (0-8); BASOPHILS PERCENT MAN 0 % (0-2); EOSINOPHILS PERCENT MAN 0 % (0-6); LYMPHOCYTES ABSOLUTE MAN 1.81 K/mm3 (0.84-5.20); LYMPHOCYTES PERCENT MAN 11 % (21-46); MONOCYTES ABSOLUTE MAN 0.33 K/mm3 (0.16-1.47); MONOCYTES PERCENT MAN 2 % (4-13); NEUTROPHILS ABSOLUTE MAN 14.38 K/mm3 (1.96-9.15); SEG NEUTROPHILS PERCENT MAN 57 % (41-73); TOTAL CELLS COUNTED 100
--- NOTE | 2022-04-09 06:52 | NUR ---
SHIFT SUMMARY PT IS ALERT AND ORIENTED. SHE IS A BIT SLOW TO RESPOND. PT REPORTS PAIN 4/10 ON LEFT SIDE. PT DENIES CHEST PAIN OR PRESSURE. DENIES SOB. VITALS ARE STABLE PT IS ON OXYMIZER 5L NC. SHE IS UP TO 7-8L WHEN TURNING. OSTOMY IS DRAINING AND BAG WAS CHANGED TWICE THIS SHIFT. CHITO DRAIN IN PLACE. CALL LIGHT IS WITHIN REACH.
--- NOTE | 2022-04-09 10:04 | NUR ---
AM NOTE: PATIENT ALERT AND ORIENTED X4. PERRLA. COMPLAINS OF SOME MILD NUMBNESS/TINGLING IN LOWER LEGS. SCD'S IN PLACE. OVERALL WEAK. Q2 TURNING. ON 3L OXYMIZER, SATING MID 90'S. LUNGS SOUNDING CLEAR AND DIM, OCCASIONAL EXP WHEEZE. OCCASIONAL COUGH. TELE SHOWING SINUS RHYTHM WITH HR 80-90'S. DENIES CHEST PAIN/PRESSURE. MIN-MOD EDEMA IN BLE. BP STABLE. COMPLAINS OF SOME SLIGHT ABDOMINAL TENDERNESS, AUDIO VIDEO MECHANIC PUMP INFUSING. LOWER ABDOMINAL MIDLINE INCISION, S/P SURGERY 04/08. CHITO DRAIN/DRESSING IN PLACE. LLQ COLOSTOMY WNL. RED IN COLOR AND DRAINING GARCIA/WATERY OUTPUT. ROCK CATH IN PLACE DRAINING DARK YELLOW URINE, CATH CARE COMPLETED THIS AM. DR ALEGRIA CALLED THIS RN, PATIENT OKAY TO HAVE ICE CHIPS AND SMALL SIPS OF WATER. NO SWALLOWING ISSUES NOTED. PATIENT COMPLAINS OF SORE/DRY THROAT. ICE CHIPS HELPING. CALL LIGHT IN REACH. Q6 BLOOD SUGARS, Q4 ORAL CARE, AND Q2 TURNING AND NEEDED. PATIENT DENIES NEEDS AT THIS TIME. PPN AND DILAUDID AUDIO VIDEO MECHANIC PUMP INFUSING. WCTM
--- NOTE | 2022-04-09 15:17 | NUR ---
TRANSFER NOTE: PATIENT TRANSFER TO 226 AT 1435. NO ACUTE CHANGES, SEE PREVIOUS NOTE. ABLE TO TITRATE DOWN TO 1L OXYMIZER SATING MID 90'S. VITAL SIGNS REMAIN STABLE. CHITO DRESSING CHANGED AND OSTOMY CHANGED WITH PROPERTY AND EQUIPMENT CLERK. PATIENT DOING WELL WITH ICE CHIPS AND SIPS OF WATER. DENIES ABDOMINAL PAIN, BUT STILL COMPLAINS OF TENDERNESS. TRANSFERRED WITH ALL PERSONAL BELONGINGS AND CHART. REPORTED OFF TO JANUARY BALLARD
--- NOTE | 2022-04-09 16:12 | NUR ---
TRANSFER/SHIFT SUMMARY POD1 EXLAP c EXTENSIVE LYSIS OF ADHESIONS, PT TRANSFERRED FROM PCU 19 TO 226, PT ARRIVE IN STABLE CONDITION, VITALS OBTAINED AND STABLE AT THAT TIME, OSTOMY FOUND TO BE LEAKING INTO CHITO DRESSING WHICH WAS REPORTED BY SUPERVISOR TYPE PHOTOGRAPHY, OSTOMY AND CHITO CHANGED AND CLEANED UP, NEW CHITO COMPRESSED AND HOLDING, NEW OSTOMY ALSO SEALED PROPERLY, WILL MONITOR FOR ANY LEAKS. PT ORIENTED TO HER ROOM, CALL LIGHT GIVEN, SUPPLY CHAIN TECH BUTTON IN REACH. WILL CTM AND REPORT TO ONCOMING LYNN RN.
--- NOTE | 2022-04-09 19:43 | NUR ---
RECEIVED REPORT AND ASSUMED CARE OF PT. SHE IS LYING IN BED WITH THE CALL LIGHT IN REACH. EYES CLOSED, RESPIRATIONS EVEN AND UNLABORED. OXIMIZER IN PLACE.
[2022-04-10 06:21] LABS: Hematocrit 27.1 % (33.0-51.0); Hemoglobin 8.7 g/dL (11.5-16.0); Mean Corpuscular HGB 27.3 pg (26.0-34.0); Mean Corpuscular HGB Conc 32.1 g/dL (31.5-36.5); Mean Corpuscular Volume 85 fL (80-100); Mean Platelet Volume 11.2 fL (9.1-12.4); Platelet Count 137 K/mm3 (150-400); RDW Coefficient Variation 19.4 % (11.7-14.2); RDW Standard Deviation 57.5 fL (35.1-46.3); Red Blood Cell Count 3.19 M/mm3 (3.80-5.20); White Blood Cell Count 15.65 K/mm3 (4.00-11.30)
[2022-04-10 06:39] LABS: Albumin, Blood 1.1 g/dL (3.4-5.0); Anion Gap 7 mmol/L (6-16); Blood Urea Nitrogen 19 mg/dL (8-24); Bun/Creatinine Ratio 45.3 (12.0-20.0); CO2, Blood 25 mmol/L (21-32); Calcium, Blood 7.5 mg/dL (8.5-10.1); Chloride, Blood 108 mmol/L (98-108); Creatinine, Blood 0.42 mg/dL (0.40-1.00); Glomerular Filtration Rate 105 (60-); Glucose, Blood 140 mg/dL (70-99); Phosphorus, Blood 2.3 mg/dL (2.5-4.9); Potassium, Blood 3.7 mmol/L (3.5-5.5); Sodium, Blood 140 mmol/L (136-145)
[2022-04-10 06:56] LABS: BAND PERCENT MAN 9 % (0-8); BASOPHILS PERCENT MAN 0 % (0-2); EOSINOPHILS PERCENT MAN 0 % (0-6); LYMPHOCYTES ABSOLUTE MAN 1.56 K/mm3 (0.84-5.20); LYMPHOCYTES PERCENT MAN 10 % (21-46); MONOCYTES ABSOLUTE MAN 0.31 K/mm3 (0.16-1.47); MONOCYTES PERCENT MAN 2 % (4-13); NEUTROPHILS ABSOLUTE MAN 13.77 K/mm3 (1.96-9.15); SEG NEUTROPHILS PERCENT MAN 79 % (41-73); TOTAL CELLS COUNTED 100
--- NOTE | 2022-04-10 07:53 | NUR ---
SHIFT SUMMARY: MANDO IS A&OX4. ON TELEMETRY, SHE DID HAVE AN EPISODE THIS SHIFT WHEN HER HEART RATE ELEVATED INTO THE 140-150s WHICH SHE ATTRIBUTED TO WATCHING THE NEWS AND WORRYING ABOUT A FRIEND WHO IS IN A WAR ZONE. OSTOMY PATENT TO LLQ, CHITO IN PLACE TO MIDLINE. ROCK PATENT, O2 VIA OXIMIZER MAINTAINING SATS >90%, POWERGLIDE AND IV PATENT, Q2 TURNS AND REPOSITIONING. HER OSTOMY APPLIACE AND MIDLINE DRESSING WERE CHANGED 4 TIMES THIS SHIFT D/T LEAKING AROUND THE APPLIANCE. SCDs IN PLACE, BLE EDEMA, SHE USES THE CALL LIGHT APPROPRIATELY. PPN INFUSING TO POWERGLIDE, MACHINE SHOP INSTRUCTOR TO IV. SHE IS LYING IN BED WITH THE CALL LIGHT IN REACH. REPORT GIVEN TO DAY SHIFT RN.
--- NOTE | 2022-04-10 17:30 | NUR ---
SUMMARY NO ACUTE CHANGES T/O SHIFT. PT'S OSTOMY LEAKED THIS AM, PLACED NEW DEVICE W/OSTOMY BELT. REMOVED CHITO AND PLACED MEPILEX DRESSING DUE TO PROXIMITY OF OSTOMY APPLIANCE TO INCISION AND FREQUENT APPLIANCE CHANGES. REPORTED TO DR ALEGRIA THAT CHITO DRESSING WAS NO LONGER ON. PT HAVING LIQUID BROWN OUTPUT FROM OSTOMY. ADVANCED TO CLEAR LIQUIDS THIS AFTERNOON. PAIN MANAGED W/CRITICAL CARE NURSE PRACTITIONER. ROCK CATH IN PLACE, DRAINING YELLOW URINE. REMAINING IN PLACE DUE TO DIURESING AND WEAKNESS. CHANGED PT FROM OXIMIZER TO 1L NC; O2 SATS MID 90S ON NC. CALL LIGHT AND CRITICAL CARE NURSE PRACTITIONER WITHIN REACH.
--- NOTE | 2022-04-11 05:26 | NUR ---
SHIFT SUMMARY NO ACUTE CHANGES OVERNIGHT. NO LEAKS ON HER OSTOMY T/O SHIFT. PT HAS BEEN PASSING FLATUS IN HER OSTOMY BAG. COLOSTOMY PUTTING OUT LIQ BROWN STOOL. PT REPORTS PAIN IN HIS L HIP, REPOSITIONED Q2. TOLERATING CLEAR DIET. DENIES N/V. MEDIPORE DRESSING REMAIN CDI. PT MANAGED PACKAGE HANDLER. PPN INFUSING. ROCK DRAINING, PATENT AND OFF FLOOR. PT REMAIN ON 1L NC, SATS ON LOW 90'S. CALL LIGHT WITHIN REACH. WILL PROVIDE REPORT TO ONCOMING NURSE.
[2022-04-11 05:55] LABS: BASOPHILS ABSOLUTE AUTO 0.05 K/mm3 (0.00-0.23); BASOPHILS PERCENT AUTO 0 % (0-2); EOSINOPHILS PERCENT AUTO 0 % (0-6); Hemoglobin 8.3 g/dL (11.5-16.0); IMMATURE GRAN ABSOLUTE AUTO 0.44 K/mm3 (0.00-0.10); IMMATURE GRAN PERCENT AUTO 3 % (0-1); LYMPHOCYTES ABSOLUTE AUTO 1.53 K/mm3 (0.84-5.20); LYMPHOCYTES PERCENT AUTO 11 % (21-46); MONOCYTES ABSOLUTE AUTO 0.35 K/mm3 (0.16-1.47); MONOCYTES PERCENT AUTO 3 % (4-13); Mean Corpuscular HGB 27.9 pg (26.0-34.0); Mean Corpuscular HGB Conc 33.2 g/dL (31.5-36.5); Mean Corpuscular Volume 84 fL (80-100); Mean Platelet Volume 11.2 fL (9.1-12.4); NEUTROPHILS ABSOLUTE AUTO 11.02 K/mm3 (1.96-9.15); NEUTROPHILS PERCENT AUTO 82 % (41-73); Platelet Count 154 K/mm3 (150-400); RDW Standard Deviation 56.8 fL (35.1-46.3); Red Blood Cell Count 2.97 M/mm3 (3.80-5.20); White Blood Cell Count 13.39 K/mm3 (4.00-11.30)
[2022-04-11 05:58] LABS: Albumin, Blood 1.1 g/dL (3.4-5.0); Anion Gap 5 mmol/L (6-16); Blood Urea Nitrogen 14 mg/dL (8-24); Bun/Creatinine Ratio 34.2 (12.0-20.0); CO2, Blood 29 mmol/L (21-32); Calcium, Blood 7.4 mg/dL (8.5-10.1); Chloride, Blood 103 mmol/L (98-108); Creatinine, Blood 0.41 mg/dL (0.40-1.00); Glomerular Filtration Rate 105 (60-); Glucose, Blood 151 mg/dL (70-99); Phosphorus, Blood 2.4 mg/dL (2.5-4.9); Potassium, Blood 3.6 mmol/L (3.5-5.5); Sodium, Blood 137 mmol/L (136-145)
--- NOTE | 2022-04-11 11:24 | NUR ---
JOHN STATED SHE IS HAVING PAIN IN HER LEFT HIP, REPOSTIONING DOESNT SEEM TO HELP EASE THE PAIN. PILLOW IN PLACE UNDER LEFT HIP ALONG WITH ICE PACK. RN NOTIFIED.
--- NOTE | 2022-04-11 17:35 | NUR ---
SUMMARY PT ADVANCED TO FULL LIQUIDS THIS SHIFT. TOLERATING WELL. COVERED CBGS PER ORDERS. DC'D ROCK AND TELE THIS AFTERNOON PER ORDERS. PT ATTEMPTING TO USE BEDPAN AT THIS TIME. OSTOMY PUT OUT LARGE AMOUNT LIQUID BROWN STOOL AND FLATUS. CALL LIGHT IN REACH.
[2022-04-12 05:36] LABS: BASOPHILS ABSOLUTE AUTO 0.06 K/mm3 (0.00-0.23); BASOPHILS PERCENT AUTO 0 % (0-2); EOSINOPHILS PERCENT AUTO 0 % (0-6); Hematocrit 27.3 % (33.0-51.0); Hemoglobin 8.8 g/dL (11.5-16.0); IMMATURE GRAN ABSOLUTE AUTO 0.31 K/mm3 (0.00-0.10); IMMATURE GRAN PERCENT AUTO 2 % (0-1); LYMPHOCYTES ABSOLUTE AUTO 1.18 K/mm3 (0.84-5.20); LYMPHOCYTES PERCENT AUTO 8 % (21-46); MONOCYTES PERCENT AUTO 2 % (4-13); Mean Corpuscular HGB 27.3 pg (26.0-34.0); Mean Corpuscular HGB Conc 32.2 g/dL (31.5-36.5); Mean Corpuscular Volume 85 fL (80-100); Mean Platelet Volume 10.3 fL (9.1-12.4); NEUTROPHILS ABSOLUTE AUTO 13.21 K/mm3 (1.96-9.15); NEUTROPHILS PERCENT AUTO 88 % (41-73); Platelet Count 172 K/mm3 (150-400); RDW Coefficient Variation 18.6 % (11.7-14.2); RDW Standard Deviation 55.8 fL (35.1-46.3); Red Blood Cell Count 3.22 M/mm3 (3.80-5.20); White Blood Cell Count 15.06 K/mm3 (4.00-11.30)
[2022-04-12 05:53] LABS: Albumin, Blood 1.1 g/dL (3.4-5.0); Albumin/Globulin Ratio 0.3 (0.8-1.8); Bilirubin, Total 0.3 mg/dL (0.1-1.0); Bun/Creatinine Ratio 36.4 (12.0-20.0); Calcium, Blood 7.8 mg/dL (8.5-10.1); Creatinine, Blood 0.33 mg/dL (0.40-1.00); Globulin, Blood 3.8 g/dL (2.2-4.0); Potassium, Blood 3.1 mmol/L (3.5-5.5); Total Protein, Blood 4.9 g/dL (6.4-8.2)
--- NOTE | 2022-04-12 06:16 | NUR ---
LOCKSMITH APPRENTICE SUMMARY PT AAOX4 AND PLEASANT. CONTINUES ON IV PPN. TOLERATING LIQUID DIET. PAIN CONTROLLED WITH CHURN TENDER. PT HAD ROCK CATH REMOVED DURING DAY SHIFT, PT HAD NOT URINATED THROUGH FIRST HALF OF SHIFT. BLADDER SCAN SHOWED 600 ML. STRAIGHT CATH PLACED TO DRAIN URINE. VSS, WILL CONTINUE TO MONITOR.
--- NOTE | 2022-04-12 11:44 | NUR ---
PT UP WITH PT/OT TO COMMODE, PT NEEDS 2 MAX ASSIST WITH GAIT AND WALKER. PT ENCOURAGED TO VOID. PT HAD SMEAR OF BM, BUTTOCK CLEANSED. SMALL AMOUNT OF EXCORATION NOTED TO BUTT CRACK, MEPILEX APPLIED AT THIS TIME. WILL CTM
--- NOTE | 2022-04-12 18:26 | NUR ---
URINE RETENTION: ROCK CATH PLACED DUE TO RETENTION. PT UNABLE TO VOID EVEN WHEN UP TO COMMODE OR ON BED MATT. PER TRINO FINLEY TO LEAVE INDWELLING ROCK IN NOW.
--- NOTE | 2022-04-12 19:13 | NUR ---
SUMMARY: PT IS POD4 LOOP COLOSTOMY. A/O, CONTINUES TO HAVE SOME TACHYCARDIA, 90-115'S MD AWARE, PT DENIES CP. INCISION SITE WNL, PT REPORTED PAIN WELL MANAGED WITH ROXICODONE TODAY, NURSE HEAD DC'D. PT IS TOLERATING DIET, DENIES N/V. PPN DC'D. PT HAS HAD MULTIPLE SMALL LIQUID BM'S THROUGH RECTUM AND STOMA HAS HAD LARGE OUTPUT OF LIQ BROWN STOOL. BAG NEEDED TO BE EMPTIED ABOUT EVERY 2 HOURS TODAY. OSTOMY BAG STARTING LEAKING AROUND EDGES AT ABOUT 1500 TODAY AND APPLIANCE CHANGED. AT THIS TIME EXCORIATION NOTED AROUND STOMA SITE, PICTURE TAKEN WHICH IS NOW IN CHART. PT REPORTS SKIN VERY SENSITIVE, IT WAS DIFFICULT TO CREATE A GOOD SEAL WHILE TRYING TO PROTECT THE SKIN AND WITH THE AMOUNT OF DRAINAGE AND POSITION OF STOMA. APPLIANCE STARTING LEAKING AGAIN AT SHIFT CHANGE. NOC RN MADE AWARE, AND PLANS TO CHANGE. NO ACUTE SAFETY CONCERNS AT THIS TIME. REPORT PASSED TO JANUARY KNUTSON.
[2022-04-13 04:44] LABS: BASOPHILS ABSOLUTE AUTO 0.04 K/mm3 (0.00-0.23); BASOPHILS PERCENT AUTO 0 % (0-2); EOSINOPHILS ABSOLUTE AUTO 0.01 K/mm3 (0.00-0.68); EOSINOPHILS PERCENT AUTO 0 % (0-6); Hemoglobin 8.5 g/dL (11.5-16.0); IMMATURE GRAN ABSOLUTE AUTO 0.26 K/mm3 (0.00-0.10); IMMATURE GRAN PERCENT AUTO 2 % (0-1); LYMPHOCYTES ABSOLUTE AUTO 1.24 K/mm3 (0.84-5.20); LYMPHOCYTES PERCENT AUTO 7 % (21-46); MONOCYTES ABSOLUTE AUTO 0.43 K/mm3 (0.16-1.47); MONOCYTES PERCENT AUTO 3 % (4-13); Mean Corpuscular HGB 27.3 pg (26.0-34.0); Mean Corpuscular HGB Conc 32.7 g/dL (31.5-36.5); Mean Corpuscular Volume 84 fL (80-100); Mean Platelet Volume 10.1 fL (9.1-12.4); NEUTROPHILS ABSOLUTE AUTO 14.87 K/mm3 (1.96-9.15); NEUTROPHILS PERCENT AUTO 88 % (41-73); Platelet Count 189 K/mm3 (150-400); RDW Coefficient Variation 18.7 % (11.7-14.2); RDW Standard Deviation 55.1 fL (35.1-46.3); Red Blood Cell Count 3.11 M/mm3 (3.80-5.20); White Blood Cell Count 16.85 K/mm3 (4.00-11.30)
[2022-04-13 05:18] LABS: Bun/Creatinine Ratio 29.9 (12.0-20.0); Calcium, Blood 7.6 mg/dL (8.5-10.1); Creatinine, Blood 0.34 mg/dL (0.40-1.00); Potassium, Blood 2.3 mmol/L (3.5-5.5)
--- NOTE | 2022-04-13 06:35 | NUR ---
ROOFER SUMMARY PT HAS HAD SIGNIFICANT LEAKING FROM COLOSTOMY THROUGH THE NIGHT. THIS RN WITH THE ASSISTANCE OF THE EAR NOSE THROAT SURGEON AND OTHER STAFF SPENT SEVERAL HOURS TRYING DIFFERENT TECHNIQUES TO GET OSTOMY APPLIANCE TO SEAL WITHOUT LEAKING STOOL IS STILL LIQUID. CURRENT SETUP IS SEALED WITHOUT LEAKS THUS FAR HOWEVER PT SKIN SURROUNDING THE STOMA IS STILL VERY EXCORIATED AND PAINFUL FOR THE PT. PT IS ALSO HAVING LIQUID BM'S ON OCCASION. POTASSIUM 2.3 WITH AM LABS, STARTED [address] COVINGTON ORDER. VITALS STABLE, WILL CONTINUE TO MONITOR.
--- NOTE | 2022-04-13 13:04 | NUR ---
VSS ON ROOM AIR THROUGHOUT THIS AM. PATIENT RESTINIG MOST OF AM, UP TO CHAIR FOR BREAKFAST, VERY WEAK BUT TOLERATED WITH 2P ASSIST, FWW, & GB, NEEDS VERBAL CUES. DIARHEEA FROM RECTUM X2 THIS AM & LIQUID OSTOMY OUTPUT, BROWN W/ SMALL CHUNKS. SOFT DIET FOR BREAKFAST, PATIENT TOLERATED WELL, DENIES N/V, ALTHOUGH DR. ARAGON CHANGED HER TO NPO W/ ICE CHIPS & CLEAR LIQUIDS ONLY AND PLAN IS TO RESTART TPN. PATIENT REPORTS PAIN TO BE 4/10 TO ABDOMEN, BUT DENIES NARCOTIC PAIN MEDICATION. PATIENT RESTING IN BED AT THIS TIME. CALL LIGHT IN REACH. REPORT GIVEN TO JANAE SIN.
--- NOTE | 2022-04-13 13:45 | NUR ---
ASSUMED PATIENT CARE, PT RESTING QUIETLY. NO SIGNS OF ACUTE DISTRESS, PT DENIES NEEDS. ASSESSMENT COMPLETE, THIS RN AGREES WITH 04/13/22 MORNING ASSESSMENT DOCUMENTATION.
--- NOTE | 2022-04-13 18:21 | NUR ---
SHIFT SUMMARY NO ACUTE EVENTS THIS SHIFT, VSS. PT WAS SLEEPY THROUGHOUT AFTERNOON, HOWEVER IS MORE ALERT THIS EVENING. PT ABLE TO ASSIST WITH REPOSITIONING IN BED, ASSISTED BY STAFF WITH Q2 TURNS AND PILLOWS FOR PRESSURE RELIEF ON BUTTOCKS. PT CONTINUES TO HAVE LIQUID STOOL PER RECTUM AND OSTOMY. OSTOMY BAG AND DRESSING IN PLACE. PT TOLERATED WATER AND ICE CHIPS, NO NAUSEA NOTED. PT ENDORSED PAIN, ENDORSED RELIEF WITH TYLENOL.
[2022-04-14 04:25] LABS: BASOPHILS ABSOLUTE AUTO 0.04 K/mm3 (0.00-0.23); BASOPHILS PERCENT AUTO 0 % (0-2); EOSINOPHILS PERCENT AUTO 0 % (0-6); Hematocrit 25.1 % (33.0-51.0); Hemoglobin 8.2 g/dL (11.5-16.0); IMMATURE GRAN ABSOLUTE AUTO 0.13 K/mm3 (0.00-0.10); IMMATURE GRAN PERCENT AUTO 1 % (0-1); LYMPHOCYTES ABSOLUTE AUTO 1.01 K/mm3 (0.84-5.20); LYMPHOCYTES PERCENT AUTO 7 % (21-46); MONOCYTES ABSOLUTE AUTO 0.37 K/mm3 (0.16-1.47); MONOCYTES PERCENT AUTO 3 % (4-13); Mean Corpuscular HGB 27.5 pg (26.0-34.0); Mean Corpuscular HGB Conc 32.7 g/dL (31.5-36.5); Mean Corpuscular Volume 84 fL (80-100); Mean Platelet Volume 9.9 fL (9.1-12.4); NEUTROPHILS PERCENT AUTO 89 % (41-73); Platelet Count 188 K/mm3 (150-400); RDW Coefficient Variation 18.7 % (11.7-14.2); RDW Standard Deviation 55.6 fL (35.1-46.3); Red Blood Cell Count 2.98 M/mm3 (3.80-5.20); White Blood Cell Count 14.65 K/mm3 (4.00-11.30)
[2022-04-14 04:51] LABS: Magnesium, Blood 1.6 mg/dL (1.6-2.4)
[2022-04-14 04:58] LABS: Alanine Aminotransfer (ALT/SGP 15 U/L (12-78); Albumin, Blood 1.2 g/dL (3.4-5.0); Albumin/Globulin Ratio 0.3 (0.8-1.8); Alk Phos 112 U/L (50-136); Anion Gap 6 mmol/L (6-16); Aspartate Aminotrans (AST/SGOT 16 U/L (12-37); Bilirubin, Total 0.6 mg/dL (0.1-1.0); Blood Urea Nitrogen 11 mg/dL (8-24); Bun/Creatinine Ratio 29.3 (12.0-20.0); CO2, Blood 29 mmol/L (21-32); Calcium, Blood 7.9 mg/dL (8.5-10.1); Chloride, Blood 105 mmol/L (98-108); Creatinine, Blood 0.38 mg/dL (0.40-1.00); Globulin, Blood 3.8 g/dL (2.2-4.0); Glomerular Filtration Rate 107 (60-); Glucose, Blood 155 mg/dL (70-99); Phosphorus, Blood 2.8 mg/dL (2.5-4.9); Potassium, Blood 2.2 mmol/L (3.5-5.5); Sodium, Blood 140 mmol/L (136-145); Triglycerides 197 mg/dL (30-160)
--- NOTE | 2022-04-14 06:12 | NUR ---
BLUE LINE TRIMMER SUMMARY COLOSTOMY HAS HELD UP WELL THROUGH THE NIGHT WITH NO LEAKS. STILL PRODUCING MODERATE AMOUNTS OF LIQUID STOOL. PT ALSO HAVING FREQUENT MUCOUSY BM'S THROUGHOUT THE NIGHT REQUIRING FREQUENT ATTENDS CHANGES. PT DOING BETTER WITH TURNING IN BED FOR CHANGES AND REPOSITIONING. POTASSIUM 2.2 THIS AM, 40 MEQ IV POTASSIUM STARTED. PT CONTINUES ON IV PPN. VSS, WILL CONTINUE TO MONITOR.
--- NOTE | 2022-04-14 17:56 | NUR ---
TACHYCARDIA ON CONT BIOX NOTED PATIENT TO HAVE SUSTAINED TACHYCARDIA 140 FOR OVER 10 MINUTES. OTHER VSS. CALLED DR ARAGON AND OBTAINED ORDER FOR EKG. EKG REVEALED SINUS TACH. DR ARAGON REVIEWED EKG AND GAVE ORDERS FOR 1 GM MAG IV NOW, PLACE TELEMETRY, AND CHECK BMP AND MAG LABS 1 HR AFTER MAG INFUSION COMPLETES. IV MAG STARTED. PATIENT UP IN CHAIR FOR DINNER. DENIES SOB, PALPITATIONS.
--- NOTE | 2022-04-14 18:53 | NUR ---
SHIFT SUMMARY PATIENT ALERT AND ORIENTED THROUGHOUT SHIFT. DR CORNELL STARTED HER ON SOFT FINGER FOOD DIET. TOLERATING WELL. ABD MODERATELY DISTENDED. OSTOMY WITH LARGE AMOUNT OF YELLOW LIQUID OUTPUT. STOMA RED. OSTOMY PATENT. ROCK PATENT AND DRAINING. MIDLINE INCISION PRINCIPAL QUALITY ENGINEER WITH OCTAVIO C/D/I. 1 ASSIST UP TO RECLINER AND COMMODE. FREQUENT LIQUID YELLOW BM IN ATTENDS THROUGHOUT SHIFT. SKIN ON BUTTOCKS, GROIN, AND FOLDS RED, PAINFUL, AND EXCORIATED. WORSENED THROUGHOUT DAY PROTECTION OF SKIN WITH PADS AND BARRIER CREAM AND FREQUENT CHANGES AND REPOSITIONING. OBTAINED ORDER FOR TOPICAL ANTIFUNGAL POWDER. TACHY LATE IN SHIFT IS RESOLVING AFTER 1 GM MAG IV. WILL RECHECK LABS IN 1 HOUR. TPN RUNNING THROUGH [employer]. WILL REPORT TO [place] GUIDE RN.
[2022-04-14 21:27] LABS: Bun/Creatinine Ratio 21.3 (12.0-20.0); Calcium, Blood 8.2 mg/dL (8.5-10.1); Creatinine, Blood 0.47 mg/dL (0.40-1.00); Magnesium, Blood 2.2 mg/dL (1.6-2.4); Potassium, Blood 2.6 mmol/L (3.5-5.5)
--- NOTE | 2022-04-15 07:35 | NUR ---
SUMMARY PT RECEIVED POTASSIUM IV STARTING ON DAY SHIFT AND CONTINUED HAVING LOW POTASSIUM RESULTS. DR MICHELE ORDERED ADDITONAL POTASSIUM IV WHICH IS CURRENTLY INFUSING LAST BAG,THEN WILL HAVE LAB RE DRAWN.PT CONTINUES WITH FREQUENT OUTPUT OF UNDIGESTED FOOD AND YELLOW LIQUID.SKIN EXCORIATED.PT REFUSING BARRIER CREAM DUE TO C/O IT STINGS WORSE WITH BARRIER CREAM APPLICATION. TPN CONCURRENT WITH K RIDERS AND ADJUSTMENTS MADE TO RATE PER DISCUSSION WITH PHARMACY FOR SAFETY.TPN RATES WERE ADJUSTED PER ORDERS.TPN WAS STOPPED PER ORDERS THIS AM ALSO PER ORDERS.
[2022-04-15 09:34] LABS: Calcium, Blood 7.8 mg/dL (8.5-10.1); Creatinine, Blood 0.41 mg/dL (0.40-1.00); Phosphorus, Blood 2.7 mg/dL (2.5-4.9); Potassium, Blood 3.1 mmol/L (3.5-5.5)
--- NOTE | 2022-04-15 18:28 | NUR ---
SHIFT SUMMARY PT IS A&O3, OCCASIONALLY CONFUSED BUT REORIENTS EASILY. VSS/RA. CBG COV PER EMAR. PAIN MANAGED WELL WITH TYLENOL. ROCK PATENT & DRAINING YELLOW URINE, STAT LOCK ON, OFF FLOOR. POD6 EXP LAP SEUN. MULTIPLE BMS - LOOP COLOSTOMY AND RECTUM. POWERGLIDE UNA INFUSING PPN 100 MLS/HR. STAND/AMB SBA BED/CHAIR, UP FOR MEALS TODAY. WILL REPORT TO ONCOMING NOC RN.
[2022-04-16 05:35] LABS: Creatinine, Blood 0.45 mg/dL (0.40-1.00); Phosphorus, Blood 3.4 mg/dL (2.5-4.9)
--- NOTE | 2022-04-16 18:12 | NUR ---
SHIFT SUMMARY PT A&OX4, VSS/RA, JUNIOR PO, ROCK PATENT & DRAINING YELLOW URINE, STAND PIVOT TO CHAIR/BED. OSTOMY APPLIANCE CHANGED AT LEAST 4X TODAY. WILL REPORT TO ONCOMING LYNN RN.
[2022-04-17 05:11] LABS: BASOPHILS ABSOLUTE AUTO 0.06 K/mm3 (0.00-0.23); BASOPHILS PERCENT AUTO 1 % (0-2); EOSINOPHILS ABSOLUTE AUTO 0.02 K/mm3 (0.00-0.68); EOSINOPHILS PERCENT AUTO 0 % (0-6); Hematocrit 24.8 % (33.0-51.0); Hemoglobin 7.7 g/dL (11.5-16.0); IMMATURE GRAN ABSOLUTE AUTO 0.09 K/mm3 (0.00-0.10); IMMATURE GRAN PERCENT AUTO 1 % (0-1); LYMPHOCYTES ABSOLUTE AUTO 1.33 K/mm3 (0.84-5.20); LYMPHOCYTES PERCENT AUTO 12 % (21-46); MONOCYTES ABSOLUTE AUTO 0.46 K/mm3 (0.16-1.47); MONOCYTES PERCENT AUTO 4 % (4-13); Mean Corpuscular HGB 27.5 pg (26.0-34.0); Mean Corpuscular Volume 89 fL (80-100); Mean Platelet Volume 10.5 fL (9.1-12.4); NEUTROPHILS ABSOLUTE AUTO 9.53 K/mm3 (1.96-9.15); NEUTROPHILS PERCENT AUTO 83 % (41-73); Platelet Count 239 K/mm3 (150-400); RDW Coefficient Variation 19.4 % (11.7-14.2); RDW Standard Deviation 61.5 fL (35.1-46.3); White Blood Cell Count 11.49 K/mm3 (4.00-11.30)
--- NOTE | 2022-04-17 05:20 | NUR ---
SHIFT SUMMARY A/O X4- PLEASANT AND COOPERATIVE W/ CARE. POD9 EX LAP W/ LOOP COLOSTOMY. ABDOMINAL INCISION- OCTAVIO AND SHROUD LINE TIER, RED DUE TO PREVIOUSLY BEING UNABLE TO KEEP OSTOMY APPLIANCE ATTATCHED AND STOOL LEAKING OUT, WELL SEVERAL INCONTINENT BOWEL MOVEMENTS. PT HAS EXCOREATED SKIN THROUGHOUT- MANAGED TO KEEP PT SKIN CLEAR OF STOOL THROUGHOUT SHIFT W/ OSTOMY HOOKED UP TO LIS AND RECTAL TUBE IN PLACE. ROCK DRAINGING TO GRAVITY. TREATED X1 W/ TYLENOL FOR PAIN REPORTED. VITAL SIGNS STABLE. WILL CONTINUE TO MONITOR AND REPORT TO ONCOMING RN.
[2022-04-17 05:35] LABS: Albumin, Blood 1.2 g/dL (3.4-5.0); Anion Gap 6 mmol/L (6-16); Blood Urea Nitrogen 14 mg/dL (8-24); Bun/Creatinine Ratio 37.4 (12.0-20.0); CO2, Blood 25 mmol/L (21-32); Calcium, Blood 7.8 mg/dL (8.5-10.1); Chloride, Blood 109 mmol/L (98-108); Creatinine, Blood 0.37 mg/dL (0.40-1.00); Glomerular Filtration Rate 108 (60-); Glucose, Blood 170 mg/dL (70-99); Phosphorus, Blood 3.3 mg/dL (2.5-4.9); Potassium, Blood 3.1 mmol/L (3.5-5.5); Sodium, Blood 140 mmol/L (136-145)
--- NOTE | 2022-04-17 15:44 | NUR ---
SPOKE W/DR ALEGRIA AT APROX 1530 REGARDING LARGE AMT PT OUTPUT FROM OSTOMY AND INABILITY TO KEEP OSTOMY SEALED. SKIN SURROUNDING STOMA EXCORIATED/WEEPING/PAINFUL. TELEPHONE ORDER TO INSERT ROCK INTO OSTOMY. [address] WAY OSTOMY PLACED WITHOUT DIFFICULTY, INSTANT RETURN OF FECAL MATTER INTO TUBE AND DRAINING INTO BAG. MODERATE AMT OF GREEN PURULENT LIQUID OBSERVED TO BE COMING OUT FROM OSTOMY AROUND ROCK. MD TO BE NOTIFIED DURING ROUNDS TONIGHT.
--- NOTE | 2022-04-17 18:40 | NUR ---
SHIFT SUMMARY PT HAS DONE WELL SINCE INSERTION OF ROCK INTO OSTOMY. SMALL AMT DRAINAGE DRAINING AROUND ROCK-GAUZE IN PLACE TO BE CHANGED NEEDED/FREQUENTLY. PLAN FOR OR LISBET W/DR DR ALEGRIA. NPO AT MIDNIGHT. RECTAL TUBE IN PLACE, DEFLATED AND REPOSITIONED THIS SHIFT. ROCK CATH IN PLACE PATENT DRAINING PAM COLORED URINE.
[2022-04-18 05:40] LABS: BASOPHILS ABSOLUTE AUTO 0.04 K/mm3 (0.00-0.23); BASOPHILS PERCENT AUTO 1 % (0-2); EOSINOPHILS ABSOLUTE AUTO 0.05 K/mm3 (0.00-0.68); EOSINOPHILS PERCENT AUTO 1 % (0-6); Hematocrit 24.3 % (33.0-51.0); Hemoglobin 7.7 g/dL (11.5-16.0); IMMATURE GRAN ABSOLUTE AUTO 0.06 K/mm3 (0.00-0.10); IMMATURE GRAN PERCENT AUTO 1 % (0-1); LYMPHOCYTES ABSOLUTE AUTO 1.36 K/mm3 (0.84-5.20); LYMPHOCYTES PERCENT AUTO 18 % (21-46); MONOCYTES ABSOLUTE AUTO 0.42 K/mm3 (0.16-1.47); MONOCYTES PERCENT AUTO 6 % (4-13); Mean Corpuscular HGB 27.8 pg (26.0-34.0); Mean Corpuscular HGB Conc 31.7 g/dL (31.5-36.5); Mean Corpuscular Volume 88 fL (80-100); Mean Platelet Volume 10.7 fL (9.1-12.4); NEUTROPHILS ABSOLUTE AUTO 5.66 K/mm3 (1.96-9.15); NEUTROPHILS PERCENT AUTO 75 % (41-73); Platelet Count 251 K/mm3 (150-400); RDW Coefficient Variation 19.2 % (11.7-14.2); RDW Standard Deviation 60.2 fL (35.1-46.3); Red Blood Cell Count 2.77 M/mm3 (3.80-5.20); White Blood Cell Count 7.59 K/mm3 (4.00-11.30)
[2022-04-18 05:55] LABS: Albumin, Blood 1.2 g/dL (3.4-5.0); Anion Gap 9 mmol/L (6-16); Blood Urea Nitrogen 13 mg/dL (8-24); Bun/Creatinine Ratio 31.6 (12.0-20.0); CO2, Blood 24 mmol/L (21-32); Chloride, Blood 109 mmol/L (98-108); Creatinine, Blood 0.41 mg/dL (0.40-1.00); Ferritin, Serum 278 ng/mL (8-252); Glomerular Filtration Rate 105 (60-); Glucose, Blood 155 mg/dL (70-99); Iron Serum 21 ug/dL (50-170); Percent Saturation 21.6 % (15.0-50.0); Phosphorus, Blood 3.3 mg/dL (2.5-4.9); Potassium, Blood 3.2 mmol/L (3.5-5.5); Sodium, Blood 142 mmol/L (136-145); Total Iron Binding Capacity 97 ug/dL (250-450)
--- NOTE | 2022-04-18 06:15 | NUR ---
PT VSS T/O NIGHT; 2LO2 PLACED WHEN PT SLEEPING TO KEEP SATS >90%. STOMA DRNG INTO ROCK BAG. STOMA DOES STILL LEAK SMALL AMTS AROUND ROCK TUBE, BUT OVERALL MUCH LESSS DRNG. APPX 500ML LISQ STOOL FROM STOMA. APPX 400 ML LIQ STOOL FROM RECTAL TUBE. SKIN REMAINS VERY RED/EXCORIATED, CARE PROVIDED PRN T/O NIGHT TO ATTEMPTS TO KEEP SKIN DRY. PT REPOSITIONED JUNIOR. PPN CONT PER ORDERS. PT NPO POST MIDNIGHT FOR PLAN FOR OR TODAY.
[2022-04-18 08:35] LABS: SARS-Cov-2 (COVID-19) PCR, MMC NEGATIVE (NEGATIVE)
--- NOTE | 2022-04-18 14:47 | NUR ---
PT TO OR AT APROX 4280
--- NOTE | 2022-04-18 17:14 | NUR ---
04/18/22 1713 Stanton Pina PATIENT ARRIVED WITH ROCK AND RECTAL TUBE
--- NOTE | 2022-04-18 19:17 | NUR ---
DR CONRAD ARRIVED IN PACU WITH PT STILL ENTUBATED, DR CONRAD CURRENTLY HAS NOT HANDED OVER CARE TO PACU, HE IS SWITCHING BETWEEN AMBOO BAG AND BLOW BY WITH ET TUBE. PT HAS BEEN SUCTIONED AT 191 VIA ET TUBE UNDER DR CONRAD SUPERVISION. DISCUSION OF GETTING HOSPITALIST HERE TO ADMIT TO ICU OR PCU.
--- NOTE | 2022-04-18 19:19 | NUR ---
PT ON AMBOO BAG VIA ET TUBE BY DR CONRAD
--- NOTE | 2022-04-18 19:25 | NUR ---
Assumed care. Report received from BOOM STICK MAN. Pt arrived to ICU at approximately 1925. Pt intubated, RT at bedside to set up ventilator. Pt has midline abdominal dressing in place, LLQ colostomy device in place. PG in UNA. Chaidez catheter in place. Rectal tube in place. Dr. Ayoub contacted for overnight instructions, plan is to keep PT intubated and sedated overnight for observation. Orders obtained for one time dose of metoprolol, see emar, for high heart rate. Vent settings: AC/VC+ 16/400/8/80%. VS stable ATT, will continue to monitor.
--- NOTE | 2022-04-18 19:30 | NUR ---
1921 DECISION MADE TO GO TO ICU, CHARGE CALLED HEADED TO ICU BED 15, DR CONRAD STILL RUNNING THE AMBOO BAG VIA ET TUBE, HE WANTS PT VENTED.
[2022-04-19 04:11] LABS: BASOPHILS ABSOLUTE AUTO 0.03 K/mm3 (0.00-0.23); BASOPHILS PERCENT AUTO 0 % (0-2); EOSINOPHILS ABSOLUTE AUTO 0.01 K/mm3 (0.00-0.68); EOSINOPHILS PERCENT AUTO 0 % (0-6); Hematocrit 27.3 % (33.0-51.0); Hemoglobin 8.4 g/dL (11.5-16.0); IMMATURE GRAN ABSOLUTE AUTO 0.06 K/mm3 (0.00-0.10); IMMATURE GRAN PERCENT AUTO 1 % (0-1); LYMPHOCYTES ABSOLUTE AUTO 1.05 K/mm3 (0.84-5.20); LYMPHOCYTES PERCENT AUTO 10 % (21-46); MONOCYTES ABSOLUTE AUTO 0.46 K/mm3 (0.16-1.47); MONOCYTES PERCENT AUTO 4 % (4-13); Mean Corpuscular HGB 27.5 pg (26.0-34.0); Mean Corpuscular HGB Conc 30.8 g/dL (31.5-36.5); Mean Corpuscular Volume 89 fL (80-100); Mean Platelet Volume 10.7 fL (9.1-12.4); NEUTROPHILS ABSOLUTE AUTO 8.77 K/mm3 (1.96-9.15); NEUTROPHILS PERCENT AUTO 85 % (41-73); Platelet Count 276 K/mm3 (150-400); RDW Coefficient Variation 19.3 % (11.7-14.2); RDW Standard Deviation 62.4 fL (35.1-46.3); Red Blood Cell Count 3.06 M/mm3 (3.80-5.20); White Blood Cell Count 10.38 K/mm3 (4.00-11.30)
[2022-04-19 04:39] LABS: Albumin, Blood 1.2 g/dL (3.4-5.0); Anion Gap 5 mmol/L (6-16); Blood Urea Nitrogen 17 mg/dL (8-24); Bun/Creatinine Ratio 34.9 (12.0-20.0); CO2, Blood 26 mmol/L (21-32); Calcium, Blood 7.8 mg/dL (8.5-10.1); Chloride, Blood 110 mmol/L (98-108); Creatinine, Blood 0.49 mg/dL (0.40-1.00); Glomerular Filtration Rate 101 (60-); Glucose, Blood 160 mg/dL (70-99); Phosphorus, Blood 4.4 mg/dL (2.5-4.9); Potassium, Blood 4.3 mmol/L (3.5-5.5); Sodium, Blood 141 mmol/L (136-145)
--- NOTE | 2022-04-19 06:41 | NUR ---
Shift summary. Pt continues in bed, sedated and ventilated. Vent settings: AC/VC+ 16/400/5/35%. PG in UNA, IV in R/forearm. Propofol running at 30 mcg/kg/min, PPN 100 ml/hr. Chaidez catheter in place, 250 out this shift. Rectal tube removed this am per Dr. Ayoub. Abdominal surgical dressing in place, serosanguineous drainage noted. Colostomy bag in place, Stoma appears recessed into abdominal cavity.
--- NOTE | 2022-04-19 07:30 | NUR ---
ASSUMED CARE OF PATIENT, ON VENTILATORAC 16/400/5/35%. SHE IS ALERT/ANSWERING QUESTIONS WITH NODDING AND SHAKING OF THE HEAD, SHE IS ANXIOUS TO BE EXTUBATED. SURGICAL SITE WITH SLIGHT OOZING, OSTOMY WITH LIQUID RETURN. BLE WITH PITTING EDEMA, HANDS EDEMATOUS.
--- NOTE | 2022-04-19 09:27 | NUR ---
IN TO SEE PT, SEDATION TURNED OFF, WILL PLAN FOR EXTUBATION SHORTLY.
--- NOTE | 2022-04-19 09:43 | NUR ---
PT EXTUBATED AT 0933, TOLERATED WELL, GOOD COUGH, SPLINTING OF INCISION, PLACED ON NC 2L/NC FOR NOW. TAKING IN VERY SMALL AMOUNT OF ICE CHIPS FOR MOUTH COMFORT, TAUGHT TO USE THE YANKAUER SUCTION.
--- NOTE | 2022-04-19 12:31 | NUR ---
MANDO WAS JUST TELLING ME THAT SHE HAS NO FAMILY HERE, THAT SHE LIVES WITH HER FRIEND, BUT THEY DON'T HAVE THE BEST RELATIONSHIP. SHE JUST STARTED THE TREATMENTS FOR HER NEWLY DIAGNOSED BREAST CANCER JUST PRIOR TO ADMISSION. SPOKE WITH MAPPING ANALYST MIKE IN REGARDS TO THE PATIENT.
--- NOTE | 2022-04-19 14:02 | NUR ---
IN TO SEE PATIENT, ORDERS FOR WET TO DRY DRESSING CHANGE OF MIDLINE INCISION, ONCE PER DAY UNLESS NEEDED. DONE. START WITH CLEAR LIQUIDS, CONTINUE TO MONITOR AND TREAT SKIN EXCORIATIONS AROUND STOMA SITE. OK TO MAKE SURGICAL STATUS.
--- NOTE | 2022-04-19 14:23 | NUR ---
Pt. is awake in bed, and welcomes my visit. Pt. is pleasant, but a little unsettled about her limited ability to move. Listen empathetically with a calming presence. Pt. displays evidence of engagement increased trust. Facilitated a life review. Prayed with Pt. Pt. verbalizes gratitude for the spiritual care visit.
--- NOTE | 2022-04-19 15:05 | NUR ---
REPORT GIVEN TO JANUARY STACK, BELONGINGS GATHERED AND PT TRANSFERRED TO ROOM 229 WITH MUCH ENTHUSIASM FROM THE PATIENT! SHE SAID, "THAT MEANS I AM BETTER"
--- NOTE | 2022-04-19 15:21 | NUR ---
TRANSFER: REPORT RECEIVED FROM TRUCK LEASING MANAGER. PT TO SURGICAL FLOOR AT ABOUT 1500. PT IS A/O, VSS -NOTED TACHYCARDIA, DR. ALEGRIA AWARE. AWAITING TELE BOX TO BE SENT. SURGICAL SITE AND OSTOMY WNL. ONLY SS DRINAGE FROM STOMA NOTED. ROCK DRAINING. PT GIVEN CALL LIGHT, WILL CTM.
--- NOTE | 2022-04-19 17:48 | NUR ---
TELE BOX VERIFIED AT ABOUT 1530 WITH MEG. HR SINUS TACH AT 113.
[2022-04-20 06:09] LABS: Hematocrit 23.1 % (33.0-51.0); Hemoglobin 7.1 g/dL (11.5-16.0); Mean Corpuscular HGB 27.8 pg (26.0-34.0); Mean Corpuscular HGB Conc 30.7 g/dL (31.5-36.5); Mean Corpuscular Volume 91 fL (80-100); Mean Platelet Volume 11.2 fL (9.1-12.4); Platelet Count 278 K/mm3 (150-400); RDW Coefficient Variation 19.4 % (11.7-14.2); RDW Standard Deviation 63.1 fL (35.1-46.3); Red Blood Cell Count 2.55 M/mm3 (3.80-5.20); White Blood Cell Count 8.74 K/mm3 (4.00-11.30)
[2022-04-20 06:26] LABS: Anion Gap 9 mmol/L (6-16); Blood Urea Nitrogen 14 mg/dL (8-24); Bun/Creatinine Ratio 31.7 (12.0-20.0); CO2, Blood 26 mmol/L (21-32); Calcium, Blood 7.5 mg/dL (8.5-10.1); Chloride, Blood 104 mmol/L (98-108); Creatinine, Blood 0.44 mg/dL (0.40-1.00); Glomerular Filtration Rate 103 (60-); Glucose, Blood 167 mg/dL (70-99); Magnesium, Blood 1.5 mg/dL (1.6-2.4); Potassium, Blood 3.4 mmol/L (3.5-5.5); Sodium, Blood 139 mmol/L (136-145); Triglycerides 131 mg/dL (30-160)
--- NOTE | 2022-04-20 08:04 | NUR ---
SUMMARY STILL DIFFICULT RETAINING OSTOMY WAFER APPLIANCE WITHOUT LEAKING.
--- NOTE | 2022-04-20 12:36 | NUR ---
DR ALEGRIA IN TO SEE PT. VERBAL ORDERS OBTAINED FOR REGULAR DIET.
--- NOTE | 2022-04-20 17:09 | NUR ---
SUMMARY NO ACUTE CHANGES T/O SHIFT. CHANGED OSTOMY APPLIANCE TWICE DURING SHIFT. HAVING LARGE AMOUNT LIQUID OUTPUT. REPOSITIONED T/O SHIFT. PT'S SKIN EXCORIATED TO BUTTOCKS/JONATHAN AREA/ABD. ROCK PUTTING OUT YELLOW URINE. PT ADVANCED TO REGULAR DIET AND PPN DISCONTINUED THIS SHIFT. CALL LIGHT IN REACH.
--- NOTE | 2022-04-20 23:47 | NUR ---
5492 ASSUMED CARE. REPORT RECIEVED FROM SAIGE SIN
[2022-04-21 04:26] LABS: Magnesium, Blood 1.6 mg/dL (1.6-2.4)
[2022-04-21 04:58] LABS: Bun/Creatinine Ratio 32.4 (12.0-20.0); Calcium, Blood 7.7 mg/dL (8.5-10.1); Creatinine, Blood 0.49 mg/dL (0.40-1.00); Potassium, Blood 2.2 mmol/L (3.5-5.5)
--- NOTE | 2022-04-21 06:18 | NUR ---
SHIFT SUMMARY 04/08 S/P LOOP COLOSTOMY; 04/18 S/P CONVERSION OF LOOP COLOSOTOMY TO END COLOSTOMY PT REPORTS MILD PAIN, DIDN'T REQUEST FOR PAIN MEDICATION. COLOSOTMY OUTPUT OF 1450 MLS OVERNIGHT. REPOSITIONED PT T/O SHIFT. BUTTOCK AND JONATHAN AREA HAS SOME EXCORATION. PT HAS ROCK WITH DARK YELLOW URINE. PT SLEPT GOOD OVERNIGHT. OSTOMY APPLIANCE REMAIN INTACT OVERNIGHT. NO LEAKAGE NOTED. CALL LIGHT WITHIN REACH. WILL PROVIDE REPORT TO ONCOMING NURSE.
--- NOTE | 2022-04-21 10:38 | NUR ---
Pt. is in bed nad welcomes my visit. Pt. is a little unsettled about recent problems with her ostomy. Listened empatheticially with a calming presence. pt. displayed evidence of engagement and reduced stress. Prayed with Pt. Pt. verbalized gratitude for the spiritual care visit.
--- NOTE | 2022-04-21 13:23 | NUR ---
[facility] NOTIFIED DR HURD PT STILL RECEIVING K RIDERS. OBTAINED ORDER TO DRAW K ONCE K RIDERS ARE COMPLETE.
--- NOTE | 2022-04-21 17:44 | NUR ---
SUMMARY NO ACUTE CHANGES T/O SHIFT. PT REC'D K RIDERS T/O DAY. K LAB DRAW SCHEDULED FOR 1800. PT TOLERATING REGULAR DIET. OSTOMY CONTINUES TO PUT OUT LARGE AMOUNTS OF BROWN LIQUID STOOL. ABD, JONATHAN AREA AND BUTTOCKS EXCORIATED. LARGE OPEN AREA DUE TO EXCORATION ON R BUTTOCKS. REPOSITIONED T/O SHIFT. PT WORKED WITH OT AND STOOD AT SIDE OF BED FOR SEVERAL MINUTES. PT TOLERATED FAIR, STATED STANDING CAUSED BACK TO SPASM. ICE PACK WAS PLACED TO BACK FOR COMFORT, WHICH APPEARED TO PROVIDE RELIEF. PT PLEASANT AND COOPERATIVE. CALL LIGHT IN REACH.
[2022-04-22 04:10] LABS: Hematocrit 24.3 % (33.0-51.0); Hemoglobin 7.6 g/dL (11.5-16.0); Mean Corpuscular HGB 27.3 pg (26.0-34.0); Mean Corpuscular HGB Conc 31.3 g/dL (31.5-36.5); Mean Corpuscular Volume 87 fL (80-100); Mean Platelet Volume 10.2 fL (9.1-12.4); Platelet Count 455 K/mm3 (150-400); RDW Coefficient Variation 19.4 % (11.7-14.2); RDW Standard Deviation 60.9 fL (35.1-46.3); Red Blood Cell Count 2.78 M/mm3 (3.80-5.20); White Blood Cell Count 7.77 K/mm3 (4.00-11.30)
[2022-04-22 04:31] LABS: Bun/Creatinine Ratio 27.9 (12.0-20.0); Calcium, Blood 8.1 mg/dL (8.5-10.1); Creatinine, Blood 0.43 mg/dL (0.40-1.00); Magnesium, Blood 1.8 mg/dL (1.6-2.4); Potassium, Blood 2.9 mmol/L (3.5-5.5)
--- NOTE | 2022-04-22 05:47 | NUR ---
SHIFT SUMMARY S/P CONVERSION OF LOOP COLOSTOMY TO END COLOSTOMY ON 04/18/22. PT TOLERATING REG DIET, DENIES NAUSEA AND VOMITING. PT DENIES PAIN BUT FEELS SORE IN HER ABD. DIDN'T REQUIRE PAIN MEDS OVERNIGHT. 2 KCL BAG INFUSED AT THE BEGINNING OF SHIFT. THIS MORNING K REMAIN 2.9, CALLED DR. COVINGTON, NEW ORDER FOR 60MEQ FOR PT. IV ABX GIVEN OVERNIGHT. OSTOMY IS PUTTING OUT MIXED LIQUID AND FORMED BROWN STOOL. TOTAL OSTOMY OUTPUT OF 1750 MLS. PT ALSO STARTED PASSING MORE FLATUS IN HER OSTOMY BAG THIS MORNING. VSS. PT HAS SOME EXCORATED SKIN ON HER BUTTOCK. REPOSITIONED Q2. EDEMA ON BLE. ROCK PATENT, OFF FLOOR AND GRAVITY. CALL LIGHT WITHIN REACH. WILL CONTINUE TO MONITOR AND WILL PROVIDE REPORT TO ONCOMING NURSE.
--- NOTE | 2022-04-22 13:37 | NUR ---
OSTOMY APPLIANCE BEGAN LEAKING. CHANGED, CLEANED SKIN/STOMA, AND PALCED NEW OSTOMY APPLIANCE. 70MM APPLIANCE USED W/ STOMA PASTE TO SEEL AROUND STOMA. GAUZE DRESSING IN MIDLINE ABDOMINAL INCISION WAS ALSO CHANGED D/T BEING SOILED WHEN OSTOMY LEAKED. GAUZE W/ NS PLACED IN MIDLINE INCISION W/ ABD TAPED OVER TO HOLD IN PLACE. PATIENT TOLERATED WELL ALTHOUGH REPORTED TO BE PAINFUL. MEPILEX PLACED TO BUTTOX/COCCYX D/T SKIN BREAKDOWN.
--- NOTE | 2022-04-22 17:09 | NUR ---
OSTOMY CHANGED D/T LEAKING AGAIN. STOMA PASTE AND PREVIOUS WAFER REMOVED WITH ADHESIVE REMOVER. SKIN EXCORCIATED AROUND BOTTOM OF OSTOMY. PACKING IN MIDLINE INCISON CHANGED D/T GETTING SOILED. MEDICATED PATIENT WITH 50MCG FENTANYL PER EMAR FOR OSTOMY CHANGE. PATIENT TOLERATED WELL ALTHOUGH VERY VISIBLE IT WAS VERY PAINFUL FOR PATIENT. NEW WAFER AND OSTOMY APPLIANCE PLACED AFTER CLEANING AND PREPPING THE SKIN.
--- NOTE | 2022-04-22 17:33 | NUR ---
SHIFT SUMMARY POD 4 FOR CONVERSION OF LOOP TO END COLOSTOMY. PATIENT HAS MIDLINE INCISION WITHOUT OCTAVIO/SUTURES, WET TO DRY PACKING IN INCISION. CHANGED TWICE THIS SHIFT D/T GETTINIG SOILED FROM OSTOMY LEAKAGE. OSTOMY APPLIANCE CHANGED X2 TIMES, SEE NOTES. PATIENT REPORTS MODERATE PAIN, ESPECIALLY WITH OSTOMY CHANGES D/T VISIBLY EXCORCIATED SKIN BELOW AND AROUND SIDES OF OSTOMY. OSTOMY OUTPUT IS STILL LIQUID ALTHOUGH APPEARS MORE SOFT THIS AFTERNOON, PARTICLES PRESENT STILL. TOLERATING REGULAR PO DIET WELL, DENIES N/V. PATIENT WORKED WITH PT/OT TODAY, TOLERATED WELL. CALLS APPROPRIATELY, WILL REPORT TO ONCOMING RN.
[2022-04-23 05:09] LABS: Bun/Creatinine Ratio 26.9 (12.0-20.0); Calcium, Blood 7.9 mg/dL (8.5-10.1); Creatinine, Blood 0.48 mg/dL (0.40-1.00)
--- NOTE | 2022-04-23 06:22 | NUR ---
SHIFT SUMMARY: MANDO IS A&OX4. VSS, NO ACUTE EVENTS OVERNIGHT. HER OSTOMY HAS REMAINED SEALED THIS SHIFT, MIDLINE DRESSING CHANGED THIS AM D/T SS DRAINAGE. SHE IS TOLERATING PO INTAKE WELL, COCCYX FLOATED PER PT'S REQUEST, ROCK PATENT. SHE IS LYING IN BED WITH THE CALL LIGHT IN REACH. WILL REPORT TO DAY SHIFT RN.
--- NOTE | 2022-04-23 17:12 | NUR ---
SHIFT SUMMARY NO ACUTE CHANGES THIS SHIFT. OSTOMY APPLIANCE HELD THROUGHOUT SHIFT, STOOL BECOMING MORE SOFT AND FORMED THIS AFTERNOON. PATEINT DENIES PAIN, N/V, TOLERATING PO DIET WELL. ROCK REMAINS IN PLACE, DRAINING CLEAR YELLOW URINE. ENCOURAGING PO FLUID INTAKE. CALLS APPROPRIATELY, WILL REPORT TO ONCOMING RN.
--- NOTE | 2022-04-24 01:09 | NUR ---
ON-CALL PHYSICIAN CONTACTED Madison/Soniya GILMORE'S REPORTS OF BLADDER BURNING AND PAIN. SIGNIFICANT SEDIMENT NOTED IN THE ROCK, IRRIGATION, REPOSITIONING, AND BARRIER CREAM APPLIED TO PERINEAL AREA AFTER CLEANING WITH ROCK WIPES. ORDER OBTAINED FOR PHENAZOPYRIDINE TID PRN. PHYSICIAN ALSO GAVE ORDER THAT IF THE MEDICATION WAS NOT EFFECTIVE AT RELIEVING THE PAIN, TO DISCONTINUE THE ROCK AND BLADDER SCAN/STRAIGHT CATH PER PROTOCOL.
[2022-04-24 04:46] LABS: Bun/Creatinine Ratio 25.6 (12.0-20.0); Calcium, Blood 8.1 mg/dL (8.5-10.1); Creatinine, Blood 0.47 mg/dL (0.40-1.00); Magnesium, Blood 1.6 mg/dL (1.6-2.4); Potassium, Blood 3.2 mmol/L (3.5-5.5)
--- NOTE | 2022-04-24 05:53 | NUR ---
SHIFT SUMMARY: MANDO IS A&OX4. VSS, NO ACUTE EVENTS OVERNIGHT. SHE HAS COMPLAINED OF PAIN WITH THE ROCK CATHETER FOR WHICH PHENAZOPYRIDINE PROVIDED SHORT TERM RELIEF. SHE IS TOLERATING PO INTAKE WELL, COLOSTOMY PRODUCING SOFT, FORMED GREEN/BROWN STOOL, AND THE WAFER HAS HELD SINCE CHANGING IT AT THE BEGINNING OF THE SHIFT. SHE HAS THE DENIED THE NEED FOR PAIN MEDICATION THIS SHIFT AND USES THE CALL LIGHT APPROPRIATELY. SHE IS LYING IN BED WITH THE CALL LIGHT IN REACH. WILL REPORT TO DAY SHIFT RN.
--- NOTE | 2022-04-24 14:30 | NUR ---
ASSISTED TO USE BSC, PT TOLERTAED WELL WITH 1 PERSON ASSIST W/ WALKER AND GAIT BELT, PT HAS VOIDED SINCE ROCK JEANNIE'D EARLIER TODAY, DENEIS ANY MORE BLADDER SPASMS OR PAIN.
--- NOTE | 2022-04-25 04:26 | NUR ---
SHIFT SUMMARY: MANDO IS A&OX4. VSS, NO ACUTE EVENTS OVERNIGHT. APPLIANCE CHANGED TO OSTOMY AT BEGINNING OF SHIFT WELL WET-TO-DRY DRESSING TO MIDLINE INCISION. ATTENDS IN PLACE FOR EPISODES OF INCONTINENCE. SHE IS TOLERATING PO INTAKE WELL, REQUIRED PAIN MEDICATION ONLY DURING THE OSTOMY CHANGE, AND THE STOOL OUTPUT CONTINUES TO TRANSITION FROM LIQUID TO SOFT STOOL. SHE IS A ONE-PERSON ASSIST TO THE BEDSIDE COMMODE AND USES THE CALL LIGHT APPROPRIATELY. SHE IS LYING IN BED WITH THE CALL LIGHT IN REACH. WILL REPORT TO DAY SHIFT RN.
[2022-04-25 04:41] LABS: Bun/Creatinine Ratio 22.1 (12.0-20.0); Calcium, Blood 7.9 mg/dL (8.5-10.1); Creatinine, Blood 0.5 mg/dL (0.40-1.00); Magnesium, Blood 1.8 mg/dL (1.6-2.4); Potassium, Blood 3.3 mmol/L (3.5-5.5)
--- NOTE | 2022-04-25 12:32 | NUR ---
LATE ENTRY SHIFT SUMMARY FOR 04/24/22: A&O X4, DENIED ANY NEED FOR PAIN MEDS T/O SHIFT, OSTOMY CONT. TO DRAIN GREEN LOOSE STOOL, APPLIANCE STAYED INTACT T/O SHIFT, ROCK CATH DC'D DUE TO DISCOMFORT, PT VOIDING IN BSC AND WEARS ATTENDS FOR OCCASSIONAL INCONTINENCE, REPORTS BLADDER SPASMS HAVE RESOLVED AFTER ROCK CATH REMOVED, OOB TO RECLINER CHAIR MOST OF THE DAY, TOLERATED WELL, TRANSFERS W/ 1 PERSON STANDBY ASSIST, NO ACUTE CHANGES FOR SHIFT.
--- NOTE | 2022-04-25 16:32 | NUR ---
OOB TO CHAIR, PT HAD DENIED ANY NEED FOR PAIN MEDS T/O SHIFT, REPORTS APPETITE IF "GREAT" TOLERATING REGULAR DIET WELL, OOB TO CHAIR FOR MEALS AND SAT IN RECLINER MOST OF THE SHIFT, PT AMBULATED DOWN THE HALLS X2 TODAY, OSTOMY APPLIANCE AND ABD WET TO DRY DRESSING CHANGED X2 TODAY, CONT. TO HAVE LOOSE SLIGLHTLY THICKER GREEN STOOL OUTPUT, DR. VALENCIA SAW PT THIS AFTERNOON REGARDING PERSISTENT DIARRHEA, PT SEEMS TO BE IN GOOD SPIRITS TODAY AND IS LOOKING FORWARD TO GETTING HER STRENGTH BACK AND HAS BEEN MOTIVATED TO MOBILIZE AND LEARN MORE ABOUT OSTOMY CARE, PT HAS BEEN GIVEN OSTOMY TEACHING WHEN APPLIANCE HAS BEEN CHANGED OR EMPTIED TODAY, NO ACUTE CHANGES THIS SHIFT.
[2022-04-26 04:53] LABS: Bun/Creatinine Ratio 24.5 (12.0-20.0); Calcium, Blood 7.9 mg/dL (8.5-10.1); Creatinine, Blood 0.53 mg/dL (0.40-1.00); Magnesium, Blood 1.9 mg/dL (1.6-2.4); Potassium, Blood 3.6 mmol/L (3.5-5.5)
--- NOTE | 2022-04-26 05:08 | NUR ---
SENIOR SCIENCE CONSULTANT SUMMARY PT AAOX4 AND PLEASANT. HAS WALKED IN THE HALLS TWICE TONIGHT WITH STAFF ASSIST AND FWW. OSTOMY APPLIANCE AND BAG CHANGED X1 TONIGHT DUE TO LEAK. ABD INCISION CLEANED AND NEW WET TO DRY DRESSING APPLIED. PT'S STOOL HAS THICKENED UP A BIT TONIGHT, STILL VERY SOFT. MEDICATED FOR PAIN ONCE PRIOR TO CHANGING OF OSTOMY APPLIANCE. VSS, WILL CONTINUE TO MONITOR.
--- NOTE | 2022-04-26 17:23 | NUR ---
OSTOMY APPLIANCE CHANGED: DURING ROUNDING AT ABOUT 1330 THIS RN NOTED LEAKING FROM OSTOMY SITE. WOUND DRESSING REMOVED AND OSTOMY APPLIANCE REPLACED USING PROVIDED NURSE NOTIFIY ORDER. SKIN AROUND STOMA IS EXCORIATED, SKIN PREP USED AND OSTOMY POWDER. GOOD SEAL CREATED. WOUND CLEANSED AND WET TO DRY DRESSING PLACED WITH ABD PAD OVER TOP. SITE NOW CDI, WILL CTM. STOMA OUTPUT APPEARS MORE FORMED. WILL CTM.
--- NOTE | 2022-04-26 17:28 | NUR ---
SUMMARY: PT IS A/O, VSS. PT MOVING WELL, UP WITH PT/OT AND UP TO CHAIR FOR MEALS. PT HAS DENIED N/V, ONLY NEEDED PAIN MEDICATION WITH OSTOMY CHANGE, HAS OTHERWISE DENIED NEED. NO COVERAGE NEEDED FOR BLOOD SUGARS. PT HAS EDEMA TO BLE, LEGS ELEVATED. NO CUTE SAFETY CONCERNS. PLAN IS TO DC TO A SNF, WILL CTM AND REPORT TO LYNN SIN.
[2022-04-27 05:58] LABS: Anion Gap 9 mmol/L (6-16); Blood Urea Nitrogen 12 mg/dL (8-24); CO2, Blood 26 mmol/L (21-32); Calcium, Blood 8.3 mg/dL (8.5-10.1); Chloride, Blood 106 mmol/L (98-108); Glomerular Filtration Rate 100 (60-); Glucose, Blood 116 mg/dL (70-99); Potassium, Blood 3.7 mmol/L (3.5-5.5); Sodium, Blood 141 mmol/L (136-145); Triglycerides 185 mg/dL (30-160)
--- NOTE | 2022-04-27 06:10 | NUR ---
PRODUCT SAFETY PROFESSIONAL SUMMARY PT CONTINUES TO DO WELL WITH AMBULATION W/ FWW. COLOSTOMY HAS HELD UP WELL THROUGH THE NIGHT WITH NO LEAKS THUS FAR. STOOL IS THICKENING UP SIGNIFICANTLY. PT WAITING FOR SNF PLACEMENT. WILL CONTINUE TO MONITOR.
[2022-04-27 13:44] LABS: SARS-Cov-2 (COVID-19) PCR, MMC NEGATIVE (NEGATIVE)
--- NOTE | 2022-04-27 14:15 | NUR ---
DISCHARGE PATIENT TOLERATING REGULAR PO DIET, DENIES N/V. MIDLINE INCISION HAS WET TO DRY DRESSING IN PLACE, C/D/I AT THIS TIME. OSTOMY APPLIANCE HOLDING WELL AND GOOD OSTOMY OUTPUT, SOFT STOOL. MINIMAL PAIN AND REPORTED TO BE MANAGED PER PATIENT. EATING, DRINKING, & VOIDING WELL. REPORT GIVEN TO DIANA TOLENTINO RN.
== END 2022-04-27 14:17 | DRG 853 ==
LOC: ER 16:38 → MEDS 22:18 → SURS 22:18 → PCU 22:18 → SURS 22:18 → MEDS 23:22 → SURS 04-08 16:08 → PCU 04-08 18:26 → SURS 04-09 15:30 → ICUW 04-18 19:15 → SURS 04-19 14:52
PROVIDERS: Emergency Medicine; Family Medicine; Internal Medicine; Surgery; ADMIT Internal Medicine
PROC: 3E03329 Introduction of Other Anti-infective into Peripheral Vein, Percutaneous Approach (ICD-10-PCS; principal; 2022-03-30)
PROC: 0DB98ZX Excision of Duodenum, Via Natural or Artificial Opening Endoscopic, Diagnostic (ICD-10-PCS; 2022-04-04)
PROC: 0DB68ZX Excision of Stomach, Via Natural or Artificial Opening Endoscopic, Diagnostic (ICD-10-PCS; 2022-04-04)
PROC: 0DBP8ZX Excision of Rectum, Via Natural or Artificial Opening Endoscopic, Diagnostic (ICD-10-PCS; 2022-04-04)
PROC: 0WUF0JZ Supplement Abdominal Wall with Synthetic Substitute, Open Approach (ICD-10-PCS; 2022-04-08)
PROC: 0DNV0ZZ Release Mesentery, Open Approach (ICD-10-PCS; 2022-04-08)
PROC: 0DN80ZZ Release Small Intestine, Open Approach (ICD-10-PCS; 2022-04-08)
PROC: 0D1N0Z4 Bypass Sigmoid Colon to Cutaneous, Open Approach (ICD-10-PCS; 2022-04-08 13:00)
PROC: 0DBM0ZZ Excision of Descending Colon, Open Approach (ICD-10-PCS; 2022-04-18)
DX: A41.9 Sepsis, unspecified organism (principal); E43 Unspecified severe protein-calorie malnutrition; J96.01 Acute respiratory failure with hypoxia; K43.0 Incisional hernia with obstruction, without gangrene; K52.1 Toxic gastroenteritis and colitis; E87.3 Alkalosis; E87.2 Acidosis; K56.0 Paralytic ileus; I10 Essential (primary) hypertension; Z20.822 Contact with and (suspected) exposure to COVID-19; E11.9 Type 2 diabetes mellitus without complications; E83.42 Hypomagnesemia; D69.6 Thrombocytopenia, unspecified; T45.1X5A Adverse effect of antineoplastic and immunosuppressive drugs, initial encounter; E78.00 Pure hypercholesterolemia, unspecified; M19.90 Unspecified osteoarthritis, unspecified site; E83.39 Other disorders of phosphorus metabolism; E88.09 Other disorders of plasma-protein metabolism, not elsewhere classified; E87.6 Hypokalemia; D64.9 Anemia, unspecified; E87.70 Fluid overload, unspecified; E86.0 Dehydration; I05.0 Rheumatic mitral stenosis; Z96.643 Presence of artificial hip joint, bilateral; Z68.32 Body mass index [BMI] 32.0-32.9, adult; Z87.891 Personal history of nicotine dependence; Z85.3 Personal history of malignant neoplasm of breast; Z86.73 Personal history of transient ischemic attack (TIA), and cerebral infarction without residual deficits; Z90.49 Acquired absence of other specified parts of digestive tract; Z90.89 Acquired absence of other organs; Z90.710 Acquired absence of both cervix and uterus; Z98.890 Other specified postprocedural states; Z91.048 Other nonmedicinal substance allergy status; Z79.899 Other long term (current) drug therapy
CPT/HCPCS: 36415; 71045; 74176; 74177; 74270; 80048; 80053; 80069; 82607; 82728; 82746; 82947; 83036; 83540; 83550; 83605; 83735; 84100; 84132; 84443; 84478; 85025; 85027; 85651; 86140; 86850; 86900; 86901; 87040; 87507; 88304; 88305; 88342; 93005; 93010; 94002; 94003; 94760; 94762; 96365-59; 96366; 96375; 97110; 97116; 97162; 97164; 97166; 97530; 97535; 99285-25; A9270; C9113; J0610; J0690; J0694; J0744; J0780; J1100; J1170; J1650; J1815; J1885; J1940; J2370; J2405; J2543; J2704; J2710; J3010; J3411; J3475; J3480; J7030; J7040; J7050; J7060; J7120; J7131; Q9967; U0004

== ENCOUNTER 2022-06-26 01:03 | Day surgery (SDC) | payer MEDICARE | END 2022-06-26 23:40 | disposition home or self-care (01) | LOC: WOUND 01:03 | DX: T81.89XA Other complications of procedures, not elsewhere classified, initial encounter (principal); I10 Essential (primary) hypertension | CPT/HCPCS: G0463 ==

== ENCOUNTER 2023-05-16 11:43 | Emergency (ER) | payer OTHER ==
[~2023-05-16] VITALS: Ht 160 cm; Wt 84.8 kg
[~2023-05-16 11:43] MED LIST changes: +Percocet 5-3251 EACH PO; +Prinivil10 MG PO; +ROSU10TA PO; +WARF2 PO
[2023-05-16 12:57] LABS: BASOPHILS ABSOLUTE AUTO 0.04 K/mm3 (0.00-0.23); BASOPHILS PERCENT AUTO 0 % (0-2); EOSINOPHILS ABSOLUTE AUTO 0.06 K/mm3 (0.00-0.68); EOSINOPHILS PERCENT AUTO 1 % (0-6); Hematocrit 38.4 % (33.0-51.0); Hemoglobin 11.9 g/dL (11.5-16.0); IMMATURE GRAN ABSOLUTE AUTO 0.02 K/mm3 (0.00-0.10); IMMATURE GRAN PERCENT AUTO 0 % (0-1); LYMPHOCYTES ABSOLUTE AUTO 0.96 K/mm3 (0.84-5.20); LYMPHOCYTES PERCENT AUTO 10 % (21-46); MONOCYTES ABSOLUTE AUTO 0.85 K/mm3 (0.16-1.47); MONOCYTES PERCENT AUTO 9 % (4-13); Mean Corpuscular HGB 24.3 pg (26.0-34.0); Mean Corpuscular Volume 79 fL (80-100); Mean Platelet Volume 10.3 fL (9.1-12.4); NEUTROPHILS ABSOLUTE AUTO 8.05 K/mm3 (1.96-9.15); NEUTROPHILS PERCENT AUTO 81 % (41-73); Platelet Count 343 K/mm3 (150-400); RDW Coefficient Variation 18.2 % (11.7-14.2); RDW Standard Deviation 51.6 fL (35.1-46.3); Red Blood Cell Count 4.89 M/mm3 (3.80-5.20); White Blood Cell Count 9.98 K/mm3 (4.00-11.30)
[2023-05-16 13:08] LABS: Bun/Creatinine Ratio 37.2 (12.0-20.0); Calcium, Blood 8.8 mg/dL (8.5-10.1); Creatinine, Blood 0.57 mg/dL (0.40-1.00); Potassium, Blood 3.8 mmol/L (3.5-5.5)
[2023-05-16 14:00] VITALS: BP 143/91
--- NOTE | 2023-05-16 14:13 | NUR ---
ED Palliative Care Consult Spoke with Dr Westbrook and discussed case. Pt to the ED with uncontroled pain. Pt's medical history and comorbidities include: Metastatic Breast Cancer, Recurrent Pleural Effusion, Stroke, and DM. Goals of care discussion may be beneficial. Pt resting on gurney and is A&OX4. Pt is known to this marine underwriter from previous hospital stay. Pt reports Fentanyl given is beneficial. Offered therapeutic listening as Pt confirms not pursuing chemo therapiy and no longer can afford to travel to [place] for the alternative therapy she was receiving. She reports struggling with getting up the stairs due to her dyspnea and has to rest half way up. She reports her pain has been significantly worse as well. Pt reports starting to have difficulty with bathing and dressing. She reports her room mate is not very supportive. Continued therapeutic listening. Engaged in therapeutic discussion regarding goals of care. Discussed hospice as an option. Educated on hospice philosophy with V/U made by Pt. Pt expresses interest in hospice. Discussed hospice agencies to choose from. Pt would like first available hospice agency. Called all 3 agencies and all are available tomorrow. Pt elects [facility]. Called and spoke with Katharine at [facility]. Katharine will schedule Pt for admission onto hospice services tomorrow. Plan: Dr Westbrook called radiology and Pt can receive thoracentesis today before D/C from the ED. Dr Westbrook will write prescriptions for Roxanol, Ativan, and Pt's home medication of Percocet until Pt can be admitted onto hospice services. Called and left message with Pt's PCP Mallika Myranda for plan of hospice. KPS 40% Pt high risk for readmission Palliative Care will remain available
[2023-05-16] MEDS ORDERED: LORA.5 PO (15:07)
[2023-05-16] MEDS ORDERED: MORP20L PO (15:07)
[2023-05-16] MEDS ORDERED: Percocet 5-3251 EACH PO (15:07)
== END 2023-05-16 15:47 | disposition home or self-care (01) ==
LOC: ER 11:43
PROVIDERS: Student in an Organized Health Care Education/Training Program
DX: G89.3 Neoplasm related pain (acute) (chronic) (principal); C50.919 Malignant neoplasm of unspecified site of unspecified female breast; C78.00 Secondary malignant neoplasm of unspecified lung; C77.9 Secondary and unspecified malignant neoplasm of lymph node, unspecified; J90 Pleural effusion, not elsewhere classified; J98.11 Atelectasis; Z91.048 Other nonmedicinal substance allergy status; Z79.899 Other long term (current) drug therapy; E11.9 Type 2 diabetes mellitus without complications; I10 Essential (primary) hypertension; E78.00 Pure hypercholesterolemia, unspecified; Z87.891 Personal history of nicotine dependence
CPT/HCPCS: 71045; 76604; 80048; 85025; 93005; 93010; 96374; 99285-25; J1170